=== PATIENT | male | born 1940 | race Caucasian/White ===

== ENCOUNTER 2022-04-17 09:25 | Inpatient (IN) | payer MEDICARE, BC, SELFPAY ==
[2022-04-17] VITALS (20 sets, daily range): BP systolic 100–129; BP diastolic 47–72; PULSE 80–110; RESP 13–24; TEMP 36.2–37.1; O2SAT 95–100; BMI 24.0
--- NOTE | ~2022-04-17 | US_ITS ---
EXAMINATION: US venous doppler [facility] DATE: 04/17/2022 16:52 INDICATION: Syncope, weakness and elevated d-dimer. TECHNIQUE: Grayscale ultrasound images without and with compression and Doppler ultrasound images of the bilateral lower extremity veins were obtained. COMPARISON: None. FINDINGS: The visualized portions of right common femoral vein, profunda (deep) femoral vein, femoral vein, pop liteal vein, posterior tibial veins, peroneal veins, gastrocnemius vein and greater saphenous vein ou tflow are patent. The visualized portions of left common femoral vein, profunda femoral vein, femoral vein, popliteal v ein, posterior tibial veins, peroneal veins, gastrocnemius vein and greater saphenous vein outflow ar e patent. IMPRESSION: 1. No deep venous thrombosis in either lower limb. Reviewed, dictated and finalized at location B.
--- NOTE | ~2022-04-17 | XR_ITS ---
EXAMINATION: XR chest 1V portable 04/17/2022 12:43 INDICATION: Weakness. Dyspnea. PROCEDURE: AP portable chest COMPARISON: No prior studies for comparison. FINDINGS: The lungs are clear. The cardiomediastinal silhouette is within normal limits. There are no pleural effusions. There is no pneumothorax suspected. IMPRESSION: 1: NO ACUTE CARDIOPULMONARY DISEASE. Reviewed, dictated and finalized at location A.
--- NOTE | ~2022-04-17 | CT_ITS ---
EXAMINATION: CTA chest PE protocol DATE: 04/17/2022 17:30 INDICATION: Elevated d-dimer. Syncope. Chills. TECHNIQUE: Computed tomography angiography (CTA) of the chest was performed with 100 mL Omnipaque-350 intravenous contrast timed to evaluate the pulmonary arteries. Coronal maximum intensity projection 3D-reconstructions were created by the technologist. Automated exposure control and iterative reconst ruction technique were employed. Exam dose: 367.01 mGy-cm total exam DLP. COMPARISON: 04/2022 portable AP chest FINDINGS: There is diagnostic contrast enhancement of the pulmonary arteries and no evidence of pulmo nary embolism. No thoracic aortic aneurysm or dissection. Normal heart size. No pericardial or pleural effusion. No enlarged hilar or mediastinal lymph nodes. There is minimal patchy groundglass infiltrate of the lingula and left lower lobe which may represent mild pneumonia. Very small sliding hiatal hernia. Normal morphology of the adrenal glands. Degenerative change at the acromioclavicular joints and osteoarthritic change at the glenohumeral john nts. 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 There is patchy sclerosis of T3 and T10 in particular, with patchy sclerotic areas elsewhere in the t horacic and lumbar spine and sternum, mixed lytic and sclerotic lesions of the left scapula, occasion al patchy sclerotic bilateral rib lesions, likely due to to extensive skeletal metastatic disease. Co nsider metastatic prostate cancer. IMPRESSION: Extensive skeletal metastatic disease, with osteoblastic predominance, raising suspicion of metastatic prostate cancer Minimal patchy groundglass infiltrates of the lingula and left lower lobe suggesting mild pneumonia No evidence of pulmonary embolism Reviewed, dictated and finalized at Location A. Reviewed, dictated and finalized at location A. IMPRESSION: Extensive skeletal metastatic disease, with osteoblastic predomina nce, raising suspicion of metastatic prostate cancer Minimal patchy groundglass infiltrates of the lingula and left lower lobe sugge sting mild pneumonia No evidence of pulmonary embolism
--- NOTE | 2022-04-17 09:40 | ECG_ITS ---
Measurements Intervals [place] Rate: 89 P: 52 OR: 186 QRS: 47 QRSD: 127 T: 43 QT: 360 QTc: 438 Interpretive Statements SINUS RHYTHM RIGHT BUNDLE BRANCH BLOCK ABNORMAL ECG NO PREVIOUS ECG AVAILABLE FOR COMPARISON Electronically Signed On 04-17-2022 10:18:42 CDT by Oliver Cantu D.O.
[2022-04-17 10:11] LABS: Glucose Point of Care 138 mg/dl (65-105)
--- NOTE | 2022-04-17 10:27 | ED.GENADULT ---
HPI - General Adult General Chief complaint: Weakness Stated complaint: Nosebleed, weak Time Seen by Provider: 04/17/22 09:32 History of Present Illness HPI narrative: this is an 81-year-old male presenting to ED with chief complaint of nose bleeding and weakness. Patient said that he had a oozing nose bleed throughout most of the day yesterday. It has now resolved. He also says he has been feeling weak. He said he got up in the middle the night he had cold sweats while going to the restroom. Then he said that he collapsed on his bed earlier this morning. He is denying fever, chest pain, dyspnea, shortness of breath. Review of Systems Review of Systems: CONSTITUTIONAL: Denies night sweats. EYES: No eye pain ENT: Denies rhinorrhea CARDIOVASCULAR: Denies palpitations RESPIRATORY: Denies hemoptysis GASTROINTESTINAL: Denies hematemesis GENITOURINARY: Denies hematuria. SKIN: Denies rash MUSCULOSKELETAL: Denies myalgia. NEUROLOGIC: Denies weakness. PSYCHIATRIC: Denies delusions PMFSH Social History Social History Social History: Patient denies use of alcohol, tobacco or drug use Exam Narrative: APPEARANCE: No apparent distress. Patient is pleasant polite during the interview Head atraumatic. EYES: PERRLA/EOMI, NOSE: Normal no drainage NECK: Supple, Trachea midline RESPIRATORY: CTAB, No increased work of breathing. CARDIOVASCULAR: S1S2 appreciated ABDOMINAL: Soft, nontender, nondistended, MUSCULOSKELETAl: No obvious deformities NEURO: Alert. Moving 4/4 extremities SKIN:: Warm, dry. Normal color PSYCHIATRIC: Normal affect rectal exam was positive for melena, Hemoccult-positive Course Vital Signs Vital signs: Vital Signs Temperature 98.3 F 04/17/22 09:29 Pulse Rate 101 H 04/17/22 09:29 Respiratory Rate 18 04/17/22 09:29 Blood Pressure 126/61 04/17/22 09:29 Pulse Oximetry 99 04/17/22 09:29 Oxygen Delivery Room Air 04/17/22 09:29 Temperature 98.3 F 04/17/22 09:29 Pulse Rate 84 04/17/22 11:31 Respiratory Rate 13 04/17/22 11:31 Blood Pressure 102/60 04/17/22 11:31 Pulse Oximetry 98 04/17/22 11:16 Oxygen Delivery Room Air 04/17/22 09:29 Medical Decision Making MDM Narrative Medical decision making narrative: this is an 81-year-old male presenting ED after a nose bleed and weakness. EKG interpretation: Rhythm [sinus], Rate 89, [place] -[normal], [place] -[normal], QRS RBBB, QTC [normal], T waves -[negative for concerning inversions], ST Segments - [Negative for concerning elevations] Final interpretations: [Normal Sinus Rhythm w/ RBBB] CBC was positive for a white blood cell count of 14, and hemoglobin of 8.1. We have no previous records of which compares hemoglobin 2. Platelet count Is 96. INR is 1.8. Patient not on anticoagulation. Patient's metabolic panel significant for hyponatremia and hypochloremia. He will be given a L of fluids. His BUN is elevated at 80 with a creatinine of 1.2. This is likely due to a GI bleed. Troponin was elevated 0.062. Aspirin will be held due to bleeding. urine urinalysis positive for over 75 RBCs per high-power field. At this point patient is bleeding from multiple locations. He has decreased platelets and is anemic. Will be admitted to the hospital for Heme-Onc evaluation. Vital Signs Vital Signs: Vital Signs Temperature 98.3 F 04/17/22 09:29 Pulse Rate 101 H 04/17/22 09:29 Respiratory Rate 18 04/17/22 09:29 Blood Pressure 126/61 04/17/22 09:29 Pulse Oximetry 99 04/17/22 09:29 Oxygen Delivery Room Air 04/17/22 09:29 Temperature 98.3 F 04/17/22 09:29 Pulse Rate 84 04/17/22 11:31 Respiratory Rate 13 04/17/22 11:31 Blood Pressure 102/60 04/17/22 11:31 Pulse Oximetry 98 04/17/22 11:16 Oxygen Delivery Room Air 04/17/22 09:29 Lab Data Result diagrams: 04/17/22 10:17 04/17/22 10:17
[2022-04-17 10:32] LABS: Basophils Percent Auto 0.2 % (0.2-1.2); Hematocrit 24.3 % (42.0-52.0); Hemoglobin 8.1 g/dL (14.0-18.0); Immature Granulocyte Absolute 0.25 K/mm3 (0.00-0.031); Immature Granulocyte Percent A 1.8 % (0-0.5); Lymphocytes Absolute Auto 0.83 K/mm3 (0.9-3.2); Lymphocytes Percent Auto 5.9 % (18.3-44.2); Mean Corpuscular HGB Conc 33.3 g/dl (32-36); Mean Corpuscular Hemoglobin 29.9 pg (26-34); Mean Corpuscular Volume 89.7 fl (80-100); Mean Platelet Volume 10.8 fl (7.4-10.4); Monocytes Absolute Auto 0.5 K/mm3 (0.1-0.6); Monocytes Percent Auto 3.3 % (2.6-8.5); Neutrophils Absolute Auto 12.5 K/mm3 (1.3-6.7); Neutrophils Percent Auto 88.8 % (45.5-73.1); Platelet Count Result 96 k/mm3 (150-375); Red Blood Count 2.71 M/mm3 (4.6-6.20); Red Cell Distribution Width 13.9 % (11.5-14.5); White Blood Count 14.1 K/mm3 (4.5-10.0)
[2022-04-17 10:40] LABS: INR 1.8; Prothrombin Time 20.3 Seconds (11.1-14.7)
[2022-04-17 10:47] LABS: Anion Gap 10 mmol/L (8-16); Blood Urea Nitrogen 79 mg/dL (9-20); Calcium 8.4 mg/dL (8.4-10.2); Carbon Dioxide 27 mmol/L (22-30); Chloride 95 mmol/L (98-107); Estimated CRCL calculation 47 ml/min; Estimated Glomerular Filt Rate 58; Glucose 138 mg/dL (65-110); Magnesium 2.1 mg/dL (1.6-2.3); Potassium 4.8 mmol/L (3.4-5.0); Sodium 132 mmol/L (137-145)
[2022-04-17 10:50] LABS: Influenza A QL RT-PCR Negative (Negative); Influenza B QL RT-PCR Negative (Negative); SARS-CoV-2 RNA PCR Negative
[2022-04-17 11:02] LABS: Troponin I 0.062 ng/mL (0.000-0.034)
[2022-04-17 11:18] LABS: Platelet Estimate Decreased (Adequate)
[2022-04-17 11:19] LABS: Acanthocytes 1+ (NORMAL); Burr Cells 1+ (NORMAL); Helmet Cells 1+ (NORMAL); Schistocytes 1+ (NORMAL)
[2022-04-17 11:35] LABS: Color Urine Red (Yellow)
[2022-04-17 11:38] LABS: Appearance Urine Cloudy (Clear); Mucus Urine Few /lpf; Protein Urine 3+ mg/dL (Negative)
[2022-04-17 11:39] LABS: Add Urine Microscopic? YES; Blood Urine 4+ (Negative); Glucose Urine UA Negative (Negative); Leukocyte Esterase Ur 2+ LEU/UL (Negative); Nitrate Urine Negative (Negative); Urobilinogen Urine 0.2 mg/dL (<2.0)
[2022-04-17 11:40] LABS: RBC Urine >75 /hpf (0-2); WBC Urine 16-20 /hpf (0-3)
--- NOTE | 2022-04-17 13:20 | PM.IMHP ---
H&P: HPI History of Present Illness Date/Time: 04/17/22 13:20 Chief Complaint: Nose bleed and we Narrative: This is a 81-year-old male patient who has no past medical history and does not take any medications. The patient was complaining of having a bleeding nose and weakness. Patient had a nose bleed all day yesterday. It is now resolved. Patient feels very weak. Patient stated that he got up in the middle of the night and noticed that he had dark stool. The patient has never had a colonoscopy or screen for colon cancer. The patient stated that he had hematuria any also had bright red blood coming from his rectum. He denied any fever chills or any shortness of breath. However he feels very dizzy when he walks and is very weak. The patient stated that he collapsed on his bed earlier this morning. His H&H initially was 8.1 and 24.3 and the repeat H&H was 7.7 and 23.3. Platelets are 96. Patient's D-dimer is greater than 20. Troponin 0.062 and 0.057. Ferritin is high at 786 TIBC is slightly low at 251. The patient had 4+ blood in his urine. The patient had been doing some work in his home and had a back pain this last week and was taking NSAIDs daily. The patient is being admitted to inpatient status on the date of service of 04/17/2022. Review of Systems Review of Systems: See HPI All systems reviewed & are unremarkable except as noted in HPI and below Constitutional: Constitutional: Reports as per HPI and Reports no additional constitutional complaints Eyes: Eyes: Reports as per HPI and Reports no additional eye complaints ENT: Reports system reviewed and no additional complaints, except as documented and Reports Normal hearing present Cardiovascular: Cardiovascular: Reports no additional cardiovascular complaints Respiratory: Respiratory: Reports no additional respiratory complaints and Reports no additional respiratory complaints Gastrointestinal: Gastrointestinal: Reports as per HPI and Reports no additional gastrointestinal complaints Musculoskeletal: Musculoskeletal: Reports no additional musculoskeletal complaints Integumentary/Breasts: Skin/Breast: Reports system reviewed and no additional complaints, except as docu and Reports as per HPI Neurologic: Reports system reviewed and no additional complaints, except as documented, Reports as per HPI and Reports Normal hearing present Psychiatric: Psychiatric: Reports no additional psychiatric complaints and Reports as per HPI Endocrine: Endocrine: Reports no additional endocrine complaints Hematologic/Lymphatic: Hematologic/Lymphatic: Reports no additional hematologic/lymphatic complaints Allergic/Immunologic: Allergic/Immunologic: Reports no additional allergic/immunologic complaints PMFSH Past Medical History Medical History (Updated 04/17/22 @ 16:09 by Marivel Minor NP) BPH (benign prostatic hyperplasia) Surgical History Surgical History (Updated 04/17/22 @ 13:24 by Marivel Minor NP) H/O hernia repair Family History Family History (Updated 04/17/22 @ 13:27 by Marivel Minor NP) Father Colon cancer Mother Bladder cancer Social History Social History (Updated 04/17/22 @ 15:59 by Marivel Minor NP) Social History: The patient lives with his and has 1 child. The is the durable power civil attorney for healthcare. Patient denies use of alcohol or drug use. 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 Code status full code Smoking status: Former smoker Tobacco type: cigarettes Has the Lack of Transportation Kept You From Medical Appointments or From Getting Medications?: No Within the Past 12 Months, Were You Worried Whether Your Food Would Run Out Before You Got Money to Buy More?: Never True What is Your Housing Situation Today?: I Have Housing Are You Worried That in the Next 2 Months, You May Not Have Your Own Housing to Live In?: No Do You Have Trouble Paying Your Heating Or Electricity Bill?: No Do
[2022-04-17 13:24] LABS: Immature Reticulocyte Fraction 27.4 % (3.0-15.9); Reticulocyte Hemoglobin Conten 32.9 pg (28.2-35.7); Reticulocyte Percent 2.64 % (0.7-4.3); Reticulocytes Absolute 0.07 B/L (32.2-175.7)
[2022-04-17 13:26] LABS: Iron 76 ug/dL (49-181)
[2022-04-17] MEDS: LACTATED RINGERS 1,000 ML 125 ML IV CONT (13:29)
[2022-04-17 13:34] LABS: Transferrin 176 mg/dL (206-381)
[2022-04-17 13:35] LABS: Percent Iron Saturation 30 % (20-50)
[2022-04-17 13:40] LABS: Magnesium 2.1 mg/dL (1.6-2.3)
[2022-04-17 13:44] LABS: Troponin I 0.057 ng/mL (0.000-0.034)
[2022-04-17 13:51] LABS: Hematocrit 23.3 % (42.0-52.0); Hemoglobin 7.7 g/dL (14.0-18.0)
[2022-04-17 14:12] LABS: Fibrinogen 81 mg/dl (215-510)
[2022-04-17 14:19] LABS: D Dimer > 20.00 ug/mL (<0.48)
--- NOTE | 2022-04-17 14:20 | ADMGEN ---
This patient, Dereck Blum, was admitted to IMU Room 206-01. Patient/family oriented to hospital policies and general routines including ID bracelet, bed and alarms, visiting hours, pain management, procedures, bathroom and other care routines, personal items, smoking policy, room service/diet, and visiting hours. Information on how to activate the Rapid Response Team has been discussed. Patient/Family are encouraged to report perceived risks to care and to ask questions if they do not understand what they are told or what they should do.
[2022-04-17 16:07] LABS: Lactate Dehydrogenase 1892 U/L (120-246)
[2022-04-17 20:53] LABS: Hematocrit 18.6 % (42.0-52.0); Hemoglobin 6.3 g/dL (14.0-18.0)
[2022-04-17] MEDS: SODIUM CHLORIDE 0.9% IV 250 ML 30 ML IV CONT (22:32)
[2022-04-17] MEDS: TUBING, BLOOD PLUM PUMP TUBING 2 EACH XX (22:33)
[2022-04-18] VITALS (22 sets, daily range): BP systolic 105–136; BP diastolic 46–68; PULSE 67–96; RESP 14–20; TEMP 36.1–37.3; O2SAT 95–100
[2022-04-18] MEDS: LACTATED RINGERS 1,000 ML 125 ML IV CONT (05:29)
[2022-04-18 06:52] LABS: Basophils Percent Auto 0.3 % (0.2-1.2); Eosinophils Absolute Auto 0.1 K/mm3 (0-0.3); Eosinophils Percent Auto 0.8 % (0-4.4); Hematocrit 23.3 % (42.0-52.0); Hemoglobin 7.8 g/dL (14.0-18.0); Immature Granulocyte Absolute 0.23 K/mm3 (0.00-0.031); Immature Granulocyte Percent A 1.7 % (0-0.5); Immature Platelet Fraction Pct 6.7 % (0.9-11.2); Lymphocytes Absolute Auto 1.28 K/mm3 (0.9-3.2); Lymphocytes Percent Auto 9.5 % (18.3-44.2); Mean Corpuscular HGB Conc 33.5 g/dl (32-36); Mean Corpuscular Hemoglobin 28.5 pg (26-34); Mean Platelet Volume 10.4 fl (7.4-10.4); Monocytes Absolute Auto 0.8 K/mm3 (0.1-0.6); Monocytes Percent Auto 5.7 % (2.6-8.5); Platelet Count Result 91 k/mm3 (150-375); Red Blood Count 2.74 M/mm3 (4.6-6.20); Red Cell Distribution Width 16.7 % (11.5-14.5); White Blood Count 13.4 K/mm3 (4.5-10.0)
[2022-04-18 07:06] LABS: Alanine Aminotransferase 14 U/L (6-50); Albumin Level 2.7 g/dL (3.5-5.1); Alkaline Phosphatase 120 U/L (38-126); Anion Gap 7 mmol/L (8-16); Aspartate Amino Transferase 63 U/L (17-59); Bilirubin,Total 0.8 mg/dL (0.2-1.3); Blood Urea Nitrogen 57 mg/dL (9-20); Calcium 7.4 mg/dL (8.4-10.2); Carbon Dioxide 25 mmol/L (22-30); Chloride 100 mmol/L (98-107); Estimated CRCL calculation 55 ml/min; Estimated Glomerular Filt Rate > 60; Glucose 89 mg/dL (65-110); Lactic Acid Reflex 0.7 mmol/L (0.7-2.0); Potassium 4.2 mmol/L (3.4-5.0); Sodium 132 mmol/L (137-145)
[2022-04-18 07:23] LABS: Helmet Cells 1+ (NORMAL); Ovalocytes 1+ (NORMAL); Platelet Estimate Decreased (Adequate); Poikilocytosis 1+ (NORMAL); Schistocytes 1+ (NORMAL)
[2022-04-18 07:24] LABS: Acanthocytes 1+ (NORMAL); Anisocytosis 1+ (NORMAL)
--- NOTE | 2022-04-18 11:18 | PM.IMPN ---
Progress Note: A&P Assessment and Plan (1) Anemia: Code(s): D64.9 - Anemia, unspecified Status: Acute Assessment and Plan: No prior level. Suspected GI bleed with melena Monitor H& H. Transfuse to keep hemoglobin more than 7 Add PPI b.i.d. History of recurrent GERD symptoms GI has been consulted Likely would benefit from EGD colonoscopy (2) BPH (benign prostatic hyperplasia): Code(s): N40.0 - Benign prostatic hyperplasia without lower urinary tract symptoms Status: Acute Assessment and Plan: -the patient take something [id number] that has Alice palmetto in it. It sounds like he has been on this for while and I would not suspect this would be causing his bleeding. However the only thing that was different is that he was taking NSAIDs last week. Metastatic osteoblastic lesions in on CTA Suspected for metastatic prostate cancer Check PSA Oncology has been consulted (3) Acute GI bleeding: Code(s): K92.2 - Gastrointestinal hemorrhage, unspecified Status: Acute Assessment and Plan: Check H&H every 6 hours. Melanomatous stool in the ER Protonix IV GI has been consulted. Will need EGD colonoscopy (4) Hematuria: Code(s): R31.9 - Hematuria, unspecified Status: Acute Assessment and Plan: Possible UTI/related now clearing up on his own Will start ceftriaxone Urine culture to be sent (5) Elevated d-dimer: Code(s): R79.89 - Other specified abnormal findings of blood chemistry Status: Acute Assessment and Plan: CT a pulmonary and venous Dopplers CTA is negative for PE however shows mild pneumonia and left lower lobe Venous duplex is negative for DVT Plan Intermittent SVT: continue to monitor Generalized weakness Collapse Melena Pneumonia left lower lobe Possible UTI Acute blood loss anemia Thrombocytopenia continue to monitor DVT prophylaxis SCDs Mild hyponatremia Elevated troponin mild with flat trajectory Elevated LDH Subjective Date/time seen: 04/18/22 11:18 Interval history: HPI:This is a 81-year-old male patient who has no past medical history and does not take any medications.? The patient was complaining of having a bleeding nose and weakness.? Patient had a nose bleed all day yesterday.? It is now resolved.? Patient feels very weak.? Patient stated that he got up in the middle of the night and noticed that he had dark stool.? The patient has never had a colonoscopy or screen for colon cancer.? The patient stated that he had hematuria any also had bright red blood coming from his rectum.? He denied any fever chills or any shortness of breath.? However he feels very dizzy when he walks and is very weak.? The patient stated that he collapsed on his bed earlier this morning.? His H&H initially was 8.1 and 24.3 and the repeat H&H was 7.7 and 23.3.? Platelets are 96.? Patient's D-dimer is greater than 20.? Troponin 0.062 and 0.057.? Ferritin is high at 786 TIBC is slightly low at 251.? The patient had 4+ blood in his urine.? The patient had been doing some work in his home and had a back pain this last week and was taking NSAIDs daily.? The patient is being admitted to inpatient status on the date of service of 04/17/2022. 04/18/2022 feels well no new complaints denies any abdominal pain nausea vomiting. He reports recurrent GERD symptoms and takes rolaid regularly. Does have prostatic symptoms with frequency of urination and nocturia. Also noted to have hematuria. Had collapsed on his bed earlier yesterday. Also has some nose bleeds and generalized weakness Review of Systems Review of Systems: All systems reviewed & are unremarkable except as noted in HPI and below Exam Narrative: General APPEARANCE: No apparent distress.? Alert and oriented x3 Head atraumatic. Normocephalic EYES:? PERRLA/EOMI, NOSE: Normal no drainage NECK: Supple, Trachea midline RESPIRATORY: CTAB, No increased work of breath
[2022-04-18 12:44] LABS: Carcinoembryonic Antigen 1.9 ng/mL (0.0-3.0)
[2022-04-18] MEDS: LACTATED RINGERS 1,000 ML 75 ML IV CONT (12:45)
[2022-04-18] MEDS: PANTOPRAZOLE SODIUM IV 40 MG VIAL IV PUSH (21:01)
[2022-04-18] MEDS: BENZOCAINE/MENTHOL (*BKC) 18 EA LOZENGE 1 LOZENGE PO (22:05)
[2022-04-19] VITALS (17 sets, daily range): BP systolic 104–155; BP diastolic 52–76; PULSE 67–93; RESP 16–20; TEMP 35.9–36.8; O2SAT 97–100
[2022-04-19 00:37] LABS: Hematocrit 22.4 % (42.0-52.0); Hemoglobin 7.5 g/dL (14.0-18.0)
--- NOTE | 2022-04-19 01:03 | PC.NURSE ---
Daylight Savings Time For Daylight Savings Time Ending in the Fall - Clocks are moved back. For Daylight Savings Time Beginning in the Spring - Clocks are moved ahead. For [facility], the time of change occurs at 0200 hrs. Time is taken from the dietary server. This entry on the patient's chart recognizes the change in time reflected during documentation. Example: 2 entries for vital signs may be charted for 0200 hrs.
[2022-04-19] MEDS: LACTATED RINGERS 1,000 ML 75 ML IV CONT (01:20)
[2022-04-19 05:40] LABS: Basophils Percent Auto 0.3 % (0.2-1.2); Eosinophils Absolute Auto 0.2 K/mm3 (0-0.3); Eosinophils Percent Auto 1.4 % (0-4.4); Hematocrit 22.2 % (42.0-52.0); Hemoglobin 7.2 g/dL (14.0-18.0); Immature Granulocyte Absolute 0.19 K/mm3 (0.00-0.031); Immature Granulocyte Percent A 1.3 % (0-0.5); Immature Platelet Fraction Pct 6.4 % (0.9-11.2); Lymphocytes Absolute Auto 1.48 K/mm3 (0.9-3.2); Lymphocytes Percent Auto 9.8 % (18.3-44.2); Mean Corpuscular HGB Conc 32.4 g/dl (32-36); Mean Corpuscular Hemoglobin 28.3 pg (26-34); Mean Corpuscular Volume 87.4 fl (80-100); Mean Platelet Volume 10.6 fl (7.4-10.4); Monocytes Absolute Auto 0.9 K/mm3 (0.1-0.6); Monocytes Percent Auto 5.6 % (2.6-8.5); Neutrophils Absolute Auto 12.3 K/mm3 (1.3-6.7); Neutrophils Percent Auto 81.6 % (45.5-73.1); Platelet Count Result 111 k/mm3 (150-375); Red Blood Count 2.54 M/mm3 (4.6-6.20); Red Cell Distribution Width 17.1 % (11.5-14.5); White Blood Count 15.1 K/mm3 (4.5-10.0)
[2022-04-19 05:58] LABS: Alanine Aminotransferase 25 U/L (6-50); Albumin Level 2.7 g/dL (3.5-5.1); Alkaline Phosphatase 114 U/L (38-126); Anion Gap 7 mmol/L (8-16); Aspartate Amino Transferase 55 U/L (17-59); Bilirubin,Total 0.5 mg/dL (0.2-1.3); Blood Urea Nitrogen 25 mg/dL (9-20); Calcium 7.4 mg/dL (8.4-10.2); Carbon Dioxide 26 mmol/L (22-30); Chloride 98 mmol/L (98-107); Estimated CRCL calculation 61 ml/min; Estimated Glomerular Filt Rate > 60; Glucose 90 mg/dL (65-110); Magnesium 1.9 mg/dL (1.6-2.3); Potassium 3.9 mmol/L (3.4-5.0); Sodium 131 mmol/L (137-145)
[2022-04-19] MEDS: PANTOPRAZOLE SODIUM IV 40 MG VIAL IV PUSH ×2 (08:21→20:56)
--- NOTE | 2022-04-19 11:30 | WPDGICN ---
Assessment and Plan Assessment and plan (1) Epistaxis: Code(s): R04.0 - Epistaxis Status: Acute Assessment and Plan: Nose bleed described as rather significant ongoing for a day and a half has now stopped. Should it recur ENT evaluation may be necessary. Likely source of anemia (2) Occult blood in stools: Code(s): R19.5 - Other fecal abnormalities Status: Acute Assessment and Plan: Stool Hemoccult found to be positive in the ER. Will repeat stool Hemoccult today. (3) Anemia: Code(s): D64.9 - Anemia, unspecified Status: Acute Assessment and Plan: Anemia likely secondary to nose bleed. Patient does have heartburn and has never had a screening colonoscopy. Given the concern over additional sources of anemia colonoscopy and EGD will be performed tomorrow after preparation today. (4) Abnormal computed tomography angiography (CTA): Code(s): R93.89 - Abnormal findings on diagnostic imaging of other specified body structures Status: Acute Assessment and Plan: CT a scan done in the emergency room reveals multiple osteoblastic bone lesions suspicious for metastatic cancer. Possible metastatic prostate cancer as described. Would recommend oncology consult possible Urology consult. PSA will be ordered. (5) Heartburn: Code(s): R12 - Heartburn Status: Acute Assessment and Plan: patient has had chronic heartburn for which he carries Rolaids with him in takes these frequently. Potentially this could indicate an upper GI source of lesions that could contribute blood loss. An EGD will be performed tomorrow as well as colonoscopy, for screening purposes, as well as to assess possible GI source of blood loss. GI Consult Note Consult date/time: 04/19/22 11:30 Reason for consult: Anemia HPI: Dereck Blum is a 81 year old male I am asked to see because of anemia and Hemoccult dark stools. Patient reports in generally has been healthy. He states last week on Wednesday he developed a nose bleed that he states was rather heavy and persisted all day long . He reports on Wednesday he presented to the emergency room because he collapsed at home. In the ER patient was noted to have a decline in his hemoglobin. He was noted to have dark stools that were Hemoccult positive. Patient states that in the past he has had occasional heartburn his whole life. He occasionally will take a Rolaids for relief on rather frequent basis. Patient denies any weight loss. No family history of colon or rectal disease. Patient has never had previous endoscopic evaluation. Review of Systems Review of Systems: Review of systems noncontributory. [facility] Past Medical History Medical History (Updated 04/19/22 @ 11:36 by Levon Laws MD) BPH (benign prostatic hyperplasia) Surgical History Surgical History (Updated 04/17/22 @ 13:24 by Marivel Minor NP) H/O hernia repair Family History Family History (Updated 04/17/22 @ 13:27 by Marivel Minor NP) Father Colon cancer Mother Bladder cancer Social History Social History (Updated 04/17/22 @ 15:59 by Marivel Minor NP) Social History: The patient lives with his and has 1 child. The is the durable power managing attorney for healthcare. Patient denies use of alcohol or drug use. 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 Code status full code Smoking status: Former smoker Tobacco type: cigarettes Has the Lack of Transportation Kept You From Medical Appointments or From Getting Medications?: No Within the Past 12 Months, Were You Worried Whether Your Food Would Run Out Before You Got Money to Buy More?: Never True What is Your Housing Situation Today?: I Have Housing Are You Worried That in the Next 2 Months, You May Not Have Your Own Housing to Live In?: No Do You Have Trouble Paying Your Heating Or Electricity Bill?: No Do You Have Trouble Paying
--- NOTE | 2022-04-19 11:37 | PM.IMPN ---
Progress Note: A&P Assessment and Plan (1) Anemia: Code(s): D64.9 - Anemia, unspecified Status: Acute Assessment and Plan: No prior level. Suspected GI bleed with melena Monitor H& H. Transfuse to keep hemoglobin more than 7 Add PPI b.i.d. History of recurrent GERD symptoms GI has been consulted Likely would benefit from EGD colonoscopy Discussed with GI 04/19/2022 (2) BPH (benign prostatic hyperplasia): Code(s): N40.0 - Benign prostatic hyperplasia without lower urinary tract symptoms Status: Acute Assessment and Plan: -the patient take something [id number] that has Alice palmetto in it. It sounds like he has been on this for while and I would not suspect this would be causing his bleeding. However the only thing that was different is that he was taking NSAIDs last week. Metastatic osteoblastic lesions in on CTA Suspected for metastatic prostate cancer Check PSA which is pending Oncology has been consulted (3) Acute GI bleeding: Code(s): K92.2 - Gastrointestinal hemorrhage, unspecified Status: Acute Assessment and Plan: Check H&H every 6 hours. Melanomatous stool in the ER Protonix IV GI has been consulted. Will need EGD colonoscopy (4) Hematuria: Code(s): R31.9 - Hematuria, unspecified Status: Acute Assessment and Plan: Possible UTI/related now clearing up on his own started on ceftriaxone Urine culture no growth (5) Elevated d-dimer: Code(s): R79.89 - Other specified abnormal findings of blood chemistry Status: Acute Assessment and Plan: CT a pulmonary and venous Dopplers CTA is negative for PE however shows mild pneumonia and left lower lobe Venous duplex is negative for DVT Plan Intermittent SVT: continue to monitor no further recurrence noted 04/19/2022 Generalized weakness Collapse Melena Pneumonia left lower lobe Possible UTI Acute blood loss anemia Thrombocytopenia continue to monitor DVT prophylaxis SCDs Mild hyponatremia Elevated troponin mild with flat trajectory Elevated LDH Subjective Date/time seen: 04/19/22 11:37 Interval history: HPI:This is a 81-year-old male patient who has no past medical history and does not take any medications.? The patient was complaining of having a bleeding nose and weakness.? Patient had a nose bleed all day yesterday.? It is now resolved.? Patient feels very weak.? Patient stated that he got up in the middle of the night and noticed that he had dark stool.? The patient has never had a colonoscopy or screen for colon cancer.? The patient stated that he had hematuria any also had bright red blood coming from his rectum.? He denied any fever chills or any shortness of breath.? However he feels very dizzy when he walks and is very weak.? The patient stated that he collapsed on his bed earlier this morning.? His H&H initially was 8.1 and 24.3 and the repeat H&H was 7.7 and 23.3.? Platelets are 96.? Patient's D-dimer is greater than 20.? Troponin 0.062 and 0.057.? Ferritin is high at 786 TIBC is slightly low at 251.? The patient had 4+ blood in his urine.? The patient had been doing some work in his home and had a back pain this last week and was taking NSAIDs daily.? The patient is being admitted to inpatient status on the date of service of 04/17/2022. 04/18/2022 feels well no new complaints denies any abdominal pain nausea vomiting. He reports recurrent GERD symptoms and takes rolaid regularly. Does have prostatic symptoms with frequency of urination and nocturia. Also noted to have hematuria. Had collapsed on his bed earlier yesterday. Also has some nose bleeds and generalized weakness 04/19/2022 no overnight events. Feeling well. No shortness of breath or chest pain. No cough. Had a bowel movement yesterday which was melanomatous Review of Systems Review of Systems: All systems reviewed & are unremarkable except as noted in HPI and below
--- NOTE | 2022-04-19 14:22 | PCPTNOTE ---
Pt declined physical therapy evaluation. States he feels he would be able to walk and do all his activities immediately if he wasn't hooked up to to his IV. Attempted to educate pt on necessity of evaluation secondary to hospitalization vs prior level of function. also present and both declined therapy evaluation. Educated if MD requires therapy to sign off on mobility, will return in the next few days
[2022-04-19] MEDS: PEG (High)/E-LYTE SOLN 4,000 ML BTL 4000 ML PO (14:24)
[2022-04-20] VITALS (10 sets, daily range): BP systolic 85–146; BP diastolic 43–83; PULSE 66–83; RESP 17–22; TEMP 36.4–36.8; O2SAT 83–100
[2022-04-20 04:58] LABS: Basophils Percent Auto 0.3 % (0.2-1.2); Eosinophils Absolute Auto 0.3 K/mm3 (0-0.3); Eosinophils Percent Auto 2.9 % (0-4.4); Hemoglobin 7.2 g/dL (14.0-18.0); Immature Granulocyte Absolute 0.13 K/mm3 (0.00-0.031); Immature Granulocyte Percent A 1.3 % (0-0.5); Immature Platelet Fraction Pct 6.9 % (0.9-11.2); Lymphocytes Absolute Auto 1.61 K/mm3 (0.9-3.2); Lymphocytes Percent Auto 15.9 % (18.3-44.2); Mean Corpuscular HGB Conc 32.7 g/dl (32-36); Mean Corpuscular Hemoglobin 28.7 pg (26-34); Mean Corpuscular Volume 87.6 fl (80-100); Monocytes Absolute Auto 0.8 K/mm3 (0.1-0.6); Monocytes Percent Auto 7.5 % (2.6-8.5); Neutrophils Absolute Auto 7.3 K/mm3 (1.3-6.7); Neutrophils Percent Auto 72.1 % (45.5-73.1); Platelet Count Result 145 k/mm3 (150-375); Red Blood Count 2.51 M/mm3 (4.6-6.20); Red Cell Distribution Width 16.4 % (11.5-14.5); White Blood Count 10.2 K/mm3 (4.5-10.0)
[2022-04-20 05:06] LABS: Alanine Aminotransferase 32 U/L (6-50); Albumin Level 2.8 g/dL (3.5-5.1); Alkaline Phosphatase 139 U/L (38-126); Anion Gap 7 mmol/L (8-16); Aspartate Amino Transferase 53 U/L (17-59); Bilirubin,Total 0.5 mg/dL (0.2-1.3); Blood Urea Nitrogen 14 mg/dL (9-20); Calcium 7.5 mg/dL (8.4-10.2); Carbon Dioxide 26 mmol/L (22-30); Chloride 95 mmol/L (98-107); Estimated CRCL calculation 61 ml/min; Estimated Glomerular Filt Rate > 60; Glucose 90 mg/dL (65-110); Magnesium 1.9 mg/dL (1.6-2.3); Potassium 3.9 mmol/L (3.4-5.0); Sodium 128 mmol/L (137-145)
[2022-04-20] MEDS: LACTATED RINGERS 1,000 ML 150 ML IV CONT (08:46)
--- NOTE | 2022-04-20 09:30 | WPDANESEPPF ---
Anes - Initial Pre Proc Eval Procedure: Operation Date: 04/20/22 15:00 Proposed Procedures p Esophagogastroduodenoscopy & Colonoscopy - Reid Garzon MD Date/Time: 04/20/22 09:30 Surgeon: Billy Vazquez MD Pre Op Diagnosis: Anemia Patient Data Age: 81 Gender: M Height: 1.8 m Weight: 83.7 kg Last Vital Signs Temp 97.7 F 04/20/22 08:43 Pulse 83 04/20/22 08:43 Resp 20 04/20/22 08:43 BP 146/83 H 04/20/22 08:43 Pulse Ox 83 L 04/20/22 08:43 O2 Del Method Room Air 04/20/22 08:43 Allergies Allergy/AdvReac Type Severity Reaction Status Date / Time No Known Allergies Allergy Verified 04/20/22 08:40 Home Medications Medication Instructions Recorded Confirmed Type No Home Medications 04/17/22 04/17/22 History Laboratory Tests 04/20/22 04/20/22 04:26 04:26 WBC 10.2 K/mm3 H K/mm3 (4.5-10.0) RBC 2.51 M/mm3 L M/mm3 (4.6-6.20) Hgb 7.2 g/dL L g/dL (14.0-18.0) Hct 22.0 % L % (42.0-52.0) MCV 87.6 fl fl (80-100) MCH 28.7 pg pg (26-34) MCHC 32.7 g/dl g/dl (32-36) RDW 16.4 % H % (11.5-14.5) Plt Count 145 k/mm3 L k/mm3 (150-375) MPV 11.0 fl H fl (7.4-10.4) Immature Gran % (Auto) 1.3 % H % (0-0.5) Neut % (Auto) 72.1 % % (45.5-73.1) Lymph % (Auto) 15.9 % L % (18.3-44.2) [place] % (Auto) 7.5 % % (2.6-8.5) Eos % (Auto) 2.9 % % (0-4.4) Baso % (Auto) 0.3 % % (0.2-1.2) Lymph # (Auto) 1.61 K/mm3 K/mm3 (0.9-3.2) [place] # (Auto) 0.8 K/mm3 H K/mm3 (0.1-0.6) Eos # (Auto) 0.3 K/mm3 K/mm3 (0-0.3) Baso # (Auto) 0.0 K/mm3 K/mm3 (0.0-0.1) Abs Immat Gran (auto) 0.13 K/mm3 H K/mm3 (0.00-0.031) Absolute Neuts (auto) 7.3 K/mm3 H K/mm3 (1.3-6.7) Absolute Nucleated RBC 0.0 K/mm3 K/mm3 (0.0-0.012) Nucleated RBC % 0.0 % % (0.0-0.2) % Immature Plt Fraction 6.9 % % (0.9-11.2) Sodium 128 mmol/L L mmol/L (137-145) Potassium 3.9 mmol/L mmol/L (3.4-5.0) Chloride 95 mmol/L L mmol/L (98-107) Carbon Dioxide 26 mmol/L mmol/L (22-30) Anion Gap 7 mmol/L L mmol/L (8-16) BUN 14 mg/dL D mg/dL (9-20) Creatinine 0.90 mg/dL mg/dL (0.7-1.3) Estim Creat Clear Calc 61 ml/min ml/min Estimated GFR > 60 (59 - ) Glucose 90 mg/dL mg/dL (65-110) Calcium 7.5 mg/dL L mg/dL (8.4-10.2) Magnesium 1.9 mg/dL mg/dL (1.6-2.3) Total Bilirubin 0.5 mg/dL mg/dL (0.2-1.3) AST 53 U/L U/L (17-59) ALT 32 U/L U/L (6-50) Alkaline Phosphatase 139 U/L H U/L (38-126) Total Protein 5.0 g/dL L g/dL (6.3-8.2) Albumin 2.8 g/dL L g/dL (3.5-5.1) Patient hx anesthesia problems: none Family hx anesthesia problems: none Results Review: All pre-operative results and documents have been reviewed as part of the pre-operative evaluation. [facility] Past Medical History Medical History (Updated 04/19/22 @ 11:36 by Levon Laws MD) BPH (benign prostatic hyperplasia) Surgical History Surgical History (Updated 04/17/22 @ 13:24 by Marivel Minor NP) H/O hernia repair Family History Family History (Updated 04/17/22 @ 13:27 by Marivel Minor NP) Father Colon cancer Mother Bladder cancer Social History Social History (Updated 04/17/22 @ 15:59 by Marivel Minor NP) Social History: The patient lives with his and has 1 child. 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 Patient denies use of alcohol or drug use. 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 Code status full code Smoking status: Former smoker Tobacco type: cigarettes Has the Lack of Transportation Kept You From Medical Appointments or From Getting Medications?: No Within the Past 12 Months, Were You Worried Whether Your Food Would Run Out Before You Got Money to Buy More
--- NOTE | 2022-04-20 10:02 | SUR.OPER ---
egd ended at 955, colonoscopy started at 1003
[2022-04-20] MEDS: PANTOPRAZOLE SODIUM IV 40 MG VIAL IV PUSH (11:25)
--- NOTE | 2022-04-20 15:26 | PM.DS ---
DS: Admitting Diagnosis Discharge Date 04/20/2022 Admitting Diagnosis generalized weakness DS: Discharge Diagnosis Discharge Diagnosis (1) Anemia: Code(s): D64.9 - Anemia, unspecified Status: Acute (2) BPH (benign prostatic hyperplasia): Code(s): N40.0 - Benign prostatic hyperplasia without lower urinary tract symptoms Status: Acute (3) Acute GI bleeding: Code(s): K92.2 - Gastrointestinal hemorrhage, unspecified Status: Acute (4) Hematuria: Code(s): R31.9 - Hematuria, unspecified Status: Acute (5) Elevated d-dimer: Code(s): R79.89 - Other specified abnormal findings of blood chemistry Status: Acute DS: Summary Hospital Course Reason for hospitalization: HPI:This is a 81-year-old male patient who has no past medical history and does not take any medications.? The patient was complaining of having a bleeding nose and weakness.? Patient had a nose bleed all day yesterday.? It is now resolved.? Patient feels very weak.? Patient stated that he got up in the middle of the night and noticed that he had dark stool.? The patient has never had a colonoscopy or screen for colon cancer.? The patient stated that he had hematuria any also had bright red blood coming from his rectum.? He denied any fever chills or any shortness of breath.? However he feels very dizzy when he walks and is very weak.? The patient stated that he collapsed on his bed earlier this morning.? His H&H initially was 8.1 and 24.3 and the repeat H&H was 7.7 and 23.3.? Platelets are 96.? Patient's D-dimer is greater than 20.? Troponin 0.062 and 0.057.? Ferritin is high at 786 TIBC is slightly low at 251.? The patient had 4+ blood in his urine.? The patient had been doing some work in his home and had a back pain this last week and was taking NSAIDs daily.? The patient is being admitted to inpatient status on the date of service of 04/17/2022. Hospital Course: # generalized weakness # Anemia: No prior level. Suspected GI bleed with melena Monitor H& H.? Transfuse to keep hemoglobin more than 7 Add PPI b.i.d. History of recurrent GERD symptoms GI has been consulted Status post EGD and colonoscopy on 04/20/2022 EGD: Velasco's esophagus without dysplasia duodenitis and hiatal hernia. Colonoscopy: Internal hemorrhoids. Diverticulosis without perforation or abscess without bleeding. Place on PPI Anemia stable without no further drop. Recheck labs in 1 week needs to establish with PCP # BPH: -the patient take something [id number] that has Alice palmetto in it.? It sounds like he has been on this for while and I would not suspect this would be causing his bleeding.? However the only thing that was different is that he was taking NSAIDs last week. 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 which is pending Oncology has been consultedBut has not seen him yet. Patient wanting to go home and hence will having follow-up with Oncology as outpatient basis. His PSA is pending and will also need follow-up with urology for likely biopsy once PSA is back. Further workup for these osteoblastic spine lesions as an outpatient basis # acute GI bleed: Check H&H every 6 hours.? Melanomatous stool in the ER Protonix IV GI has been consulted. EGD and colonoscopy as noted above # hematuria: Possible UTI/related now clearing up on his own ?started on ceftriaxone Urine culture? no growth # elevated D-dimer: CT a pulmonary and venous Dopplers CTA is negative for PE however shows mild pneumonia and left lower lobe Venous duplex is negative for DVT # Intermittent SVT: continue to monitor no further recurrence noted 04/19/2022 # Collapse #Pneumonia left lower lobe treated with azithromycin and ceftriaxone. Will switch to Omnicef at discharge # Possible UTI # urine culture no growth # Thrombocytopenia continue to monitor mild and improving # DVT prophylaxi
[2022-04-21 19:37] LABS: Haptoglobin 19 mg/dL (43-212)
[2022-04-21 20:41] LABS: PSA, Free 7.04 ng/mL; PSA, Total 53.5 ng/mL (<=4.0)
== END 2022-04-20 16:00 | disposition home or self-care (01) | DRG 377 ==
LOC: ANHED 12:37 → ANHIMU 13:46
PROVIDERS: Internal Medicine Gastroenterology; Nurse Practitioner; Admitting Provider Internal Medicine; Emergency Provider Emergency Medicine; Visit Provider Internal Medicine
PROC: 0DJ08ZZ Inspection of Upper Intestinal Tract, Via Natural or Artificial Opening Endoscopic (ICD-10-PCS; CPT 43235; principal; 2022-04-20 15:00)
DX: K92.1 Melena (principal); J18.9 Pneumonia, unspecified organism; E87.1 Hypo-osmolality and hyponatremia; I47.1 Supraventricular tachycardia; N39.0 Urinary tract infection, site not specified; D64.9 Anemia, unspecified; K22.70 Barrett's esophagus without dysplasia; K44.9 Diaphragmatic hernia without obstruction or gangrene; K29.80 Duodenitis without bleeding; K64.8 Other hemorrhoids; K57.30 Diverticulosis of large intestine without perforation or abscess without bleeding; K21.9 Gastro-esophageal reflux disease without esophagitis; R04.0 Epistaxis; N40.0 Benign prostatic hyperplasia without lower urinary tract symptoms; R31.9 Hematuria, unspecified; R79.89 Other specified abnormal findings of blood chemistry; E78.5 Hyperlipidemia, unspecified; R77.8 Other specified abnormalities of plasma proteins; R55 Syncope and collapse; R53.1 Weakness; D69.6 Thrombocytopenia, unspecified; Z20.822 Contact with and (suspected) exposure to COVID-19; Z28.21 Immunization not carried out because of patient refusal; Z87.891 Personal history of nicotine dependence
CPT/HCPCS: 36415; 36430; 71045; 71275; 80048; 80053; 81001; 82378; 82607; 82728; 82746; 82948; 83010; 83540; 83550; 83605; 83615; 83735; 84153; 84154; 84443; 84466; 84484; 85014; 85018; 85025; 85046; 85055; 85380; 85384; 85610; 85730; 86850; 86880; 86900; 86901; 86923; 87081; 87086; 87502; 88305; 88342; 93005; 93970; 97165; 99285; A9270; C9113; J0456; J0696; J2370; J2704; J7050; J7120; P9016; Q9967; U0003; U0005

== ENCOUNTER 2022-04-23 09:58 | Emergency (ER) | payer MEDICARE, BC, SELFPAY ==
[2022-04-23 10:31] VITALS: BP 158/81; PULSE 82; RESP 18; TEMP 38; O2SAT 99
[2022-04-23 10:49] VITALS: O2SAT 97
[2022-04-23 10:57] LABS: Hematocrit 24.8 % (42.0-52.0); Hemoglobin 8.2 g/dL (14.0-18.0); Mean Corpuscular HGB Conc 33.1 g/dl (32-36); Mean Corpuscular Hemoglobin 28.2 pg (26-34); Mean Corpuscular Volume 85.2 fl (80-100); Mean Platelet Volume 9.8 fl (7.4-10.4); Platelet Count Result 326 k/mm3 (150-375); Red Blood Count 2.91 M/mm3 (4.6-6.20); Red Cell Distribution Width 15.8 % (11.5-14.5)
[2022-04-23 11:00] VITALS: O2SAT 97
[2022-04-23 11:06] LABS: INR 1.2; Partial Thromboplastin Time 29.3 SECONDS (22.3-36.8); Prothrombin Time 14.7 Seconds (11.1-14.7)
--- NOTE | 2022-04-23 11:10 | ED.GIBLEED ---
HPI - GI Bleed General Chief complaint: GI Bleed Stated complaint: weakness, anemia, blood in stool Time Seen by Provider: 04/23/22 11:08 Source: patient Mode of arrival: ambulatory Limitations: no limitations History of Present Illness HPI Narrative: 81 years old white female came to the emergency room because of feeling weak all over mainly lower extremities and have shot of black parts of the stool, 1 bowel movement a day since he had colonoscopy 1 week ago. Patient is concerned about the possibility of GI bleed. Colonoscopy 5 ago showed no abnormalities. Patient is not on blood thinners. CTA pulmonary on April 17 showed extensive skeletal metastatic disease with osteoblastic predominance, raising suspicious for metastatic prostatic cancer. Related Data Allergies Allergy/AdvReac Type Severity Reaction Status Date / Time No Known Allergies Allergy Verified 04/23/22 10:53 Review of Systems Review of Systems: All systems reviewed & are unremarkable except as noted in HPI and below PMFSH Past Medical History Medical History BPH (benign prostatic hyperplasia) Surgical History Surgical History H/O hernia repair Family History Family History Father Colon cancer Mother Bladder cancer Social History Social History Social History: The patient lives with his and has 1 child. The is the durable power document review attorney for healthcare. Patient denies use of alcohol or drug use. 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 Code status full code Smoking status: Former smoker Tobacco type: cigarettes Lack of Transportation: No Lack of Food: Never True Current Housing: I Have Housing Concerned About Future Housing: No Difficulty Paying Gas/Electric Bills: No Difficulty Paying for Meds: No Currently Unemployed: No Education: High School Diploma/GED Difficulty w/ Childcare or Family Care: No Spiritual care concerns: No Exam Narrative: General appearance: Well-developed, well-nourished Skin: Normal color Head: Normocephalic, nontraumatic Eyes: Clear conjunctiva ENT: Oropharynx normal, ears normal, nose normal Neck: Supple, nontender Chest and respiratory: Airway patent, no respiratory distress, no accessory muscle use Heart: Regular rate/rhythm Abdomen: Soft, nontender, no organomegaly, quiet bowel sounds Vascular: Normal peripheral pulses, normal capillary refill. Musculoskeletal: Normal range of motion, nontender back Neurologic: Alert and oriented ?3, [employer] is normal as tested, no gross motor deficit , Brown stool, guaiac negative Course Course Emergency Course: Work-up today showed that the patient had anemia, CTA pulmonary showed metastatic bone lesions high likely secondary to prostatic cancer. Patient needs to be evaluated by a urologist for biopsy and confirming the diagnosis. Patient scheduled to follow-up with Dr. No after getting urology evaluation. Patient report inability to get hold of Dr. Ruby, nobody answered the phone and he would like to get another urologist Vital Signs Vital signs: Vital Signs Temperature 38.0 C H 04/23/22 10:31 Pulse Rate 82 04/23/22 10:31 Respiratory Rate 18 04/23/22 10:31 Blood Pressure 158/81 H 04/23/22 10:31 Pulse Oximetry 99 04/23/22 10:31 Temperature 38.0 C H 04/23/22 10:31 Pulse Rate 82 04/23/22 10:31 Respiratory Rate 18 04/23/22 10:31 Blood Pressure 158/81 H 04/23/22 10:31 Pulse Oximetry 99 04/23/22 10:31
[2022-04-23 11:19] LABS: Band Neutrophils Percent 4 % (0-6); Eosinophils Absolute Manual 0.11 K/mm3 (0.02-0.5); Eosinophils Percent Manual 1 % (0-4); Lymphocytes Absolute Manual 1.65 K/mm3 (1.1-4.5); Metamyelocytes Percent 4 %; Monocytes Absolute Manual 0.22 K/mm3 (0.1-0.90); Monocytes Percent Manual 2 % (3-9); Myelocytes Percent 2 %; Neutrophils Absolute Manual 8.36 K/mm3 (1.3-6.7); Neutrophils Percent Manual 72 % (46-73); Total Cells Counted 100
[2022-04-23 11:20] LABS: Anisocytosis 1+ (NORMAL); Schistocytes 1+ (NORMAL)
[2022-04-23 11:21] LABS: Ovalocytes 1+ (NORMAL)
[2022-04-23 11:23] LABS: Alanine Aminotransferase 21 U/L (6-50); Albumin Level 3.4 g/dL (3.5-5.1); Alkaline Phosphatase 156 U/L (38-126); Anion Gap 8 mmol/L (8-16); Aspartate Amino Transferase 37 U/L (17-59); Bilirubin,Total 0.5 mg/dL (0.2-1.3); Blood Urea Nitrogen 14 mg/dL (9-20); Carbon Dioxide 24 mmol/L (22-30); Chloride 95 mmol/L (98-107); Estimated CRCL calculation 55 ml/min; Estimated Glomerular Filt Rate > 60; Glucose 93 mg/dL (65-110); Potassium 4.4 mmol/L (3.4-5.0); Sodium 127 mmol/L (137-145)
[2022-04-23 11:35] VITALS: O2SAT 97
[2022-04-23 11:45] VITALS: O2SAT 96
[2022-04-23 13:42] VITALS: BP 145/77; PULSE 78; RESP 16; O2SAT 96
== END 2022-04-23 14:06 | disposition home or self-care (01) ==
PROVIDERS: Emergency Provider Emergency Medicine
DX: R53.1 Weakness (principal); C79.51 Secondary malignant neoplasm of bone; D64.9 Anemia, unspecified; E87.1 Hypo-osmolality and hyponatremia; N40.0 Benign prostatic hyperplasia without lower urinary tract symptoms; Z87.891 Personal history of nicotine dependence
CPT/HCPCS: 36415; 80053; 85025; 85610; 85730; 86850; 86900; 86901; 99283

== ENCOUNTER 2022-05-01 14:23 | Outpatient (CLI) | payer MEDICARE, BC, SELFPAY ==
[2022-05-01 14:44] LABS: Basophils Absolute Auto 0.1 K/mm3 (0.0-0.1); Basophils Percent Auto 0.5 % (0.2-1.2); Eosinophils Absolute Auto 0.2 K/mm3 (0-0.3); Eosinophils Percent Auto 1.9 % (0-4.4); Hemoglobin 8.4 g/dL (14.0-18.0); Immature Granulocyte Absolute 0.22 K/mm3 (0.00-0.031); Immature Granulocyte Percent A 2.1 % (0-0.5); Lymphocytes Absolute Auto 1.03 K/mm3 (0.9-3.2); Lymphocytes Percent Auto 9.7 % (18.3-44.2); Mean Corpuscular HGB Conc 32.3 g/dl (32-36); Mean Corpuscular Hemoglobin 28.7 pg (26-34); Mean Corpuscular Volume 88.7 fl (80-100); Mean Platelet Volume 8.7 fl (7.4-10.4); Monocytes Absolute Auto 0.6 K/mm3 (0.1-0.6); Monocytes Percent Auto 5.4 % (2.6-8.5); Neutrophils Absolute Auto 8.6 K/mm3 (1.3-6.7); Neutrophils Percent Auto 80.4 % (45.5-73.1); Platelet Count Result 300 k/mm3 (150-375); Red Blood Count 2.93 M/mm3 (4.6-6.20); Red Cell Distribution Width 15.9 % (11.5-14.5); White Blood Count 10.6 K/mm3 (4.5-10.0)
[2022-05-01 16:31] LABS: Iron 37 ug/dL (49-181)
[2022-05-01 16:32] LABS: Alanine Aminotransferase 18 U/L (6-50); Albumin Level 3.6 g/dL (3.5-5.1); Alkaline Phosphatase 181 U/L (38-126); Anion Gap 9 mmol/L (8-16); Aspartate Amino Transferase 38 U/L (17-59); Bilirubin,Total 0.4 mg/dL (0.2-1.3); Blood Urea Nitrogen 20 mg/dL (9-20); Calcium 8.2 mg/dL (8.4-10.2); Carbon Dioxide 25 mmol/L (22-30); Chloride 95 mmol/L (98-107); Estimated Glomerular Filt Rate 58; Glucose 145 mg/dL (65-110); Lactate Dehydrogenase 575 U/L (120-246); Potassium 4.4 mmol/L (3.4-5.0); Sodium 129 mmol/L (137-145)
[2022-05-01 16:40] LABS: Percent Iron Saturation 14 % (20-50)
== END 2022-05-01 14:24 | disposition home or self-care (01) ==
LOC: ANHLAB 14:25
PROVIDERS: Visit Provider Internal Medicine Hematology & Oncology
DX: D64.9 Anemia, unspecified (principal); C19 Malignant neoplasm of rectosigmoid junction
CPT/HCPCS: 36415; 80053; 82607; 82728; 83540; 83550; 83615; 85025

== ENCOUNTER 2022-05-13 07:35 | Outpatient (CLI) | payer MEDICARE, BC, SELFPAY ==
--- NOTE | ~2022-05-13 | NM_ITS ---
NM bone scan whole body DATE: 05/13/2022 11:12 INDICATION: Prostate cancer TECHNIQUE: Routine anterior and posterior whole body images of the skeleton were obtained several toni rs after intravenous injection of 24.6 mCi 99m technetium MDP COMPARISON: None FINDINGS: Bilateral renal activity is observed. There is increased uptake at both knee joints and several foci of uptake at the ankle and foot areas, likely of degenerative etiology. 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 Reviewed, dictated and finalized at location B. 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
== END 2022-05-13 07:36 | disposition home or self-care (01) ==
LOC: ANHIMG 07:38
PROVIDERS: Visit Provider Internal Medicine Hematology & Oncology
DX: C61 Malignant neoplasm of prostate (principal); C79.51 Secondary malignant neoplasm of bone
CPT/HCPCS: 78306; A9561

== ENCOUNTER 2022-05-15 11:19 | Outpatient (CLI) | payer MEDICARE, BC, SELFPAY ==
--- NOTE | ~2022-05-15 | PE_ITS ---
EXAMINATION: PET_PETPSMAST_PT DATE: 05/15/2022 13:40 INDICATION: Prostate cancer TECHNIQUE: 9.476 mCi of pipflufolastat F-18 (18-F-DCFPyL) was administered i.v. Low dose computed to mography (CT) images were acquired from the base of the brain to the base of the brain to the proxima l thighs for attenuation correction and anatomic localization. Positron emission tomography (PET) philip ges were acquired in the same distribution beginning 92 minutes after injection. Images including fus ed PET/CT images were reconstructed in axial, coronal, and sagittal planes. Automated exposure contro l technique was employed. The dose-length product was 647.41mGy-cm. COMPARISON: Bone scan dated 05/13/2022 FINDINGS: Musculoskeletal: Widespread foci of prominent increased density estimated uptake throughout the axial and appendicular skeleton, the majority with corresponding sclerotic bone lesions on CT imaging and with correspondin g increased uptake on prior bone scan, all consistent with metastatic prostate cancer. Moderate cervi tawny and thoracic and severe lumbar spondylosis. Chronic appearing superior endplate compression fract ure at L4 with approximately 20% central vertebral body height loss. Head/neck: Typical pattern of symmetric physiologic increased activity in the lacrimal, parotid and submandibula r glands as well as along the mucosa of the oropharynx and nasopharynx. No pathologically enlarged ce rvical lymphadenopathy or other suspicious foci of abnormal soft tissue uptake in the visualized head or neck. Chest: Mild dependent atelectasis in the bilateral lower lobes. Additional mild discoid atelectasis along th e right minor fissure. No pneumonia, pulmonary edema, suspicious pulmonary nodules or pleural effusio n. Heart size is normal. No pericardial effusion. Thoracic aorta is normal in caliber. No pathologica lly enlarged or PSMA avid thoracic lymphadenopathy. Abdomen/pelvis/proximal thighs: Physiologic renal accumulation and excretion of activity in the kidneys, bladder and along portions o f ureters. Normal degree and slightly heterogenous pattern of increased uptake throughout the liver a nd spleen without radiologic correlate or dominant PSMA avid lesion. The gallbladder, pancreas and bi lateral adrenal glands are normal. Common uptake scattered throughout the bowels with typical duodena l predominance and without radiologic correlate, also likely physiologic. Extensive colonic diverticu losis without adjacent inflammatory stranding to suggest acute diverticulitis. Focal increased FDG up take with maximal SUV of 7.4 at the posterior prostate which could represent the site of the primary prostate cancer. No other abnormal foci of increased uptake or pathologically enlarged lymphadenopath y in the abdomen, pelvis or proximal thighs. Small fat-containing left inguinal hernia and small fat- containing umbilical hernia. IMPRESSION: 1. Widespread the right neck and PSMA avid bone lesions consistent with widespread metastatic prostat e cancer. No evident metastatic lymphadenopathy or other soft tissue metastases. 2. Small focus of moderate increased PSMA may activity at the posterior prostate which likely represe nts the site of the primary malignancy. 3. Small fat-containing umbilical and left inguinal hernias. Reviewed, dictated and finalized at location A. LY CASEWORKER IMPRESSION: 1. Widespread the right neck and PSMA avid bone lesions consistent with widespr ead metastatic prostate cancer. No evident metastatic lymphadenopathy or other soft tissue metastases. 2. Small focus of moderate increased PSMA may activity at the posterior prostat e which likely represents the site of the primary malignancy. 3. Small fat-containing umbilical and left inguinal hernias.
== END 2022-05-15 11:20 | disposition home or self-care (01) ==
PROVIDERS: Visit Provider Internal Medicine Hematology & Oncology
DX: C61 Malignant neoplasm of prostate (principal); M89.9 Disorder of bone, unspecified; K42.9 Umbilical hernia without obstruction or gangrene; K40.90 Unilateral inguinal hernia, without obstruction or gangrene, not specified as recurrent
CPT/HCPCS: 78815; A9595

== ENCOUNTER 2022-05-18 00:25 | Day surgery (SDC) | payer MEDICARE, BC, SELFPAY ==
--- NOTE | ~2022-05-18 | BM_ITS ---
EXAMINATION: CCL bone marrow asp w bx diag ORDER COMPLETED DATE: 05/18/2022 09:21 INDICATION: Chronic anemia. Metastatic prostate cancer. TECHNIQUE: A time-out was performed to verify the patient's name, date of , and procedure to b e performed. The procedure including the risks and benefits was discussed with the patient. Risks dis cussed included bleeding, infection, nerve injury and allergic reaction. The patient understood the r isks and agreed to proceed. The skin overlying the left posterior iliac spine was prepped and draped in usual sterile fashion. Anesthetic was administered with 1% lidocaine subcutaneously. Moderate con scious sedation was achieved with 50 mcg fentanyl IV. An 11 gauge needle was inserted into the ilium with fluoroscopic guidance. Bone marrow was aspirated. An 8 gauge needle was then inserted into the i lium with fluoroscopic guidance. A core bone marrow biopsy was obtained. The needle was removed and t he entry site was cleaned and dressed. There were no immediate complications. A total of 63 fluorosc opic images were recorded. Fluoroscopy exposure time was 0.1 minutes. FINDINGS: Real-time fluoroscopy demonstrates the biopsy needle tip overlying the left posterior iliac spine. IMPRESSION: 1. Successful fluoroscopic guided bone marrow aspiration. 2. Successful fluoroscopic guided bone marrow biopsy. Reviewed, dictated and finalized at location A. CAL HISTORIAN
[2022-05-18 07:15] VITALS: BP 140/85; PULSE 75; RESP 12; TEMP 36.8; O2SAT 95; BMI 24.3
[2022-05-18 07:31] LABS: Basophils Absolute Auto 0.1 K/mm3 (0.0-0.1); Basophils Percent Auto 1.1 % (0.2-1.2); Eosinophils Absolute Auto 0.4 K/mm3 (0-0.3); Eosinophils Percent Auto 5.9 % (0-4.4); Hematocrit 30.6 % (42.0-52.0); Hemoglobin 9.9 g/dL (14.0-18.0); Immature Granulocyte Absolute 0.09 K/mm3 (0.00-0.031); Immature Granulocyte Percent A 1.3 % (0-0.5); Lymphocytes Absolute Auto 1.84 K/mm3 (0.9-3.2); Lymphocytes Percent Auto 25.7 % (18.3-44.2); Mean Corpuscular HGB Conc 32.4 g/dl (32-36); Mean Corpuscular Hemoglobin 28.3 pg (26-34); Mean Corpuscular Volume 87.4 fl (80-100); Mean Platelet Volume 8.9 fl (7.4-10.4); Monocytes Absolute Auto 0.6 K/mm3 (0.1-0.6); Monocytes Percent Auto 8.8 % (2.6-8.5); Neutrophils Absolute Auto 4.1 K/mm3 (1.3-6.7); Neutrophils Percent Auto 57.2 % (45.5-73.1); Platelet Count Result 384 k/mm3 (150-375); Red Cell Distribution Width 15.6 % (11.5-14.5); White Blood Count 7.2 K/mm3 (4.5-10.0)
[2022-05-18 08:20] LABS: INR 1.1; Prothrombin Time 13.5 Seconds (11.1-14.7)
--- NOTE | 2022-05-18 08:27 | WPDMODSED ---
Moderate Sedation Note-Pt Data Patient Data Diagnosis: anemia, likely metastatic prostate cancer Present Complaint: weakness and anemia Procedure to be performed/Plan: bone marrow biopsy Allergies Allergy/AdvReac Type Severity Reaction Status Date / Time No Known Allergies Allergy Verified 05/18/22 07:18 Home Medications Medication Instructions Recorded Confirmed Type pantoprazole 40 mg tablet,delayed 40 mg PO QAM #30 tabs 04/20/22 05/18/22 Rx release solifenacin 5 mg tablet 5 mg PO DAILY 05/18/22 05/18/22 History Sedation/Anesthesia: No previous sedation/anesthesia problems (including family history). [facility] Past Medical History Medical History BPH (benign prostatic hyperplasia) Surgical History Surgical History H/O hernia repair Family History Family History Father Colon cancer Mother Bladder cancer Social History Social History Social History: The patient lives with his and has 1 child. The is the durable power attorney at law for healthcare. Patient denies use of alcohol or drug use. 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 Code status full code Smoking status: Former smoker Tobacco type: cigarettes Lack of Transportation: No Lack of Food: Never True Current Housing: I Have Housing Concerned About Future Housing: No Difficulty Paying Gas/Electric Bills: No Difficulty Paying for Meds: No Currently Unemployed: No Education: High School Diploma/GED Difficulty w/ Childcare or Family Care: No Gender identity (if verbalized by the patient): Male Spiritual care concerns: No Mod Sed Physical Exam Physical Exam Pre Procedural Exam: Normal: Appearance, Eyes, Throat, Lungs, Heart Rate, Heart Rhythm and Abdomen Hours since solid foods: 6 Hours since liquid intake: 6 Mallampati Classification: class 1 Internal Medicine - PN: Obj Da Vital Signs Vital Signs: Vital Signs - 24 hr 05/18/22 07:15 Temperature 98.2 F Pulse Rate 75 Respiratory Rate 12 Blood Pressure 140/85 Pulse Oximetry 95 Oxygen Delivery Room Air Labs 05/18/22 07:17 Labs: Laboratory Results - last 24 hr 05/18/22 05/18/22 07:17 07:17 WBC 7.2 RBC 3.50 L Hgb 9.9 L Hct 30.6 L MCV 87.4 MCH 28.3 MCHC 32.4 RDW 15.6 H Plt Count 384 H MPV 8.9 Immature Gran % (Auto) 1.3 H Neut % (Auto) 57.2 Lymph % (Auto) 25.7 [place] % (Auto) 8.8 H Eos % (Auto) 5.9 H Baso % (Auto) 1.1 Lymph # (Auto) 1.84 [place] # (Auto) 0.6 Eos # (Auto) 0.4 H Baso # (Auto) 0.1 Abs Immat Gran (auto) 0.09 H Absolute Neuts (auto) 4.1 Absolute Nucleated RBC 0.0 Nucleated RBC % 0.0 PT 13.5 INR 1.1 ASA Classification/Sedation ASA Classification/Sedation ASA Class: III Emergent: No Risks: Risks, benefits and alternatives explained and patient/family accepted plan for sedation. Patient re-evaluated immediately prior to sedation.
[2022-05-18 09:10] VITALS: BP 152/83; PULSE 68; RESP 14; TEMP 36.8
[2022-05-18 09:40] VITALS: BP 136/80; PULSE 64; RESP 12
[2022-05-18 10:15] VITALS: BP 136/80; PULSE 62; RESP 12; O2SAT 96
== END 2022-05-18 10:30 | disposition home or self-care (01) ==
PROVIDERS: Referring Provider Internal Medicine Hematology & Oncology; Visit Provider Radiology Diagnostic Radiology
DX: C79.51 Secondary malignant neoplasm of bone (principal); D64.9 Anemia, unspecified; C61 Malignant neoplasm of prostate
CPT/HCPCS: 36415; 38222; 85025; 85610; 88184; 88185; 88305; 88311; 88313; 88342; J1642; J2250; J3010; J7040

== ENCOUNTER 2022-06-01 01:06 | Day surgery (SDC) | payer MEDICARE, BC, SELFPAY ==
--- NOTE | 2022-05-27 08:47 | PC.NURSE ---
Report to the Outpatient Waiting Room, entrance under the green pavilion located off [address], at time __1200 on date _06/01/22 . Planned Procedure Time: _1400 . Time changes happen often and if your time is changed the preop area will call you the afternoon before. - You and your visitor will be asked to self-screen and do not enter if you have any COVID symptoms. - Only one visitor is requested with a max of two and NO children visitors are allowed at this time. - The patient visitor may be requested to leave or wait in car when not with patient due to distancing restrictions. - A mask is optional within the hospital. Patients may have clear liquids (water, carbonated beverages, clear teas, apple juice) until 3 hours prior to surgery with a maximum of 20 ounces. - No food from midnight until time of surgery - Infants may have breast milk until 4 hours before surgery, formula 6 hours prior to surgery. - Children will be allowed to drink immediately following surgery. If applicable, please bring a bottle or sippy cup to assist with drinking. Juice, water, soda, and popsicles are readily available. For infants on formula, please bring formula the day of surgery. Pacifiers are allowed. Take the following medications with a SIP of water the morning of surgery: ___NONE Medications to discontinue per physician ALL VITAMINS AND SUPPLEMENT 3 DAYS PRE OP Date to take last dose__05/28/22 Please no make-up, nail cymro, hairspray, perfume, deodorant, or body powder the day of surgery. No jewelry (including any body piercings) or valuables the day of surgery, leave them at home. Please take a shower or bath the night before, or the morning of, surgery with an antibacterial soap. Wear comfortable, loose fitting clothing. Children are encouraged to wear pajamas. - Jewelry must be removed prior to entering the operating room. Rings and piercings that are not removed may be cut off. - The hospital will not accept responsibility for valuables. - Please leave all valuables, including medications, at home the day of surgery. If you are going home after surgery, a licensed driver license reviewing officer must drive you home. - NO public transportation without another adult if you receive anesthesia. - We recommend that an adult stay with you for 24 hours following discharge. - We also recommend that you do not drive, make important decision, drink alcoholic beverages, or take any drugs that were not prescribed by your health care provider for at least 24 hours after your discharge t Follow any additional instructions given to you from your surgeon. If you or anyone in your household have experienced Covid symptoms in the past week, please notify your surgeon or the nurse liaison at the phone number below for possible testing. Telephone instructions given to PT'S WIFE_PAT and asked if any additional questions and then verbalized understanding. Patient advised to call surgeon office or pre surgery nurse liaison [phone] if any additional questions.
[2022-05-27 09:06] VITALS: BMI 24.8
--- NOTE | 2022-05-29 15:46 | PM.HPGS ---
History of Present Illness History of Present Illness Consent: Risks, benefits, and alternatives of placement of a Port-A-Cath have been discussed and questions answered. Patient agrees to proceed with procedure. Chief complaint: prostate cancer Narrative: Dereck Blum is a 82 year old male who last month in April of 2022 had a bone marrow biopsy showing metastatic prostate cancer. He has seen Dr. No and they are planning for chemotherapy using Taxotere and hormone therapy. He will also be receiving 5 mg of prednisone twice a day. PET scan on May 18 showed widespread skeletal metastasis. Because of this he is presenting today for placement of a vascular access device. We were planning to place a Port-A-Cath most likely on the right. Patient has not had previous surgery on his head or neck. Review of Systems Constitutional: Constitutional: Reports no additional constitutional complaints, Reports fatigue and Denies malaise Eyes: Eyes: Denies change in vision and Denies loss of vision ENT: Reports Normal hearing present, Denies change in voice, Denies dizziness, Denies hoarseness and Denies sore throat Cardiovascular: Cardiovascular: Denies chest pain, Denies leg edema and Denies dyspnea Respiratory: Respiratory: Denies cough, Denies dyspnea and Denies wheezing Gastrointestinal: Gastrointestinal: Denies hematochezia, Denies change in bowel habits and Denies heartburn Genitourinary: Genitourinary: Denies urinary frequency and Denies urinary incontinence Neurologic: Reports Normal hearing present, Denies confusion, Denies dizziness, Denies loss of vision, Denies memory loss and Denies seizure-like activity Psychiatric: Psychiatric: Denies confusion, Denies depression and Denies memory loss Endocrine: Endocrine: Denies cold intolerance and Reports fatigue Hematologic/Lymphatic: Hematologic/Lymphatic: Denies easy bleeding and Denies easy bruising Comments: history of anemia, ( most recent CBC from May 01 showed hemoglobin 8.4 platelets 176138 Allergic/Immunologic: Allergic/Immunologic: Denies wheezing PMFSH Past Medical History Medical History BPH (benign prostatic hyperplasia) Prostate CA Surgical History Surgical History H/O hernia repair Family History Family History Father Colon cancer Mother Bladder cancer Social History Social History Social History: The patient lives with his and has 1 child. The is the durable power workers compensation attorney for healthcare. Patient denies use of alcohol or drug use. 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 Code status full code Smoking packs per day: 0.5 Smoking cigarettes per day: 10.0 Years smoked: 3 Smoking pack-years: 1.50 Smoking status: Former smoker Tobacco type: cigarettes Smoking end date: 06/14/57 Lack of Transportation: No Lack of Food: Never True Current Housing: I Have Housing Concerned About Future Housing: No Difficulty Paying Gas/Electric Bills: No Difficulty Paying for Meds: No Currently Unemployed: No Education: High School Diploma/GED Difficulty w/ Childcare or Family Care: No Living arrangements: with family Gender identity (if verbalized by the patient): Male Spiritual care concerns: No Meds Home Medications and Allergies Home Medications Medication Instructions Recorded Confirmed Type pantoprazole 40 mg tablet,delayed 40 mg PO QAM #30 tabs 04/20/22 05/27/22 Rx release solifenacin 5 mg tablet 5 mg PO DAILY 05/18/22 05/27/22 History calcium carbonate 600 mg-vitamin 1 cap PO BID 05/27/22 05/27/22 History D3 10 mcg (400 unit) capsule ferrous sulfate 325 mg (65 mg 325 mg PO BID 05/27/22 05/27/22 History iron) tablet Allergies A
--- NOTE | 2022-05-30 09:52 | P.PNAN_ITS ---
Anes - Initial Pre Proc Eval Procedure: Operation Date: 06/01/22 12:00 Proposed Procedures p Insertion Jacoby Cath - Mike Wright MD Date/Time: 05/30/22 09:52 Surgeon: Mike Wright MD Pre Op Diagnosis: prostate cancer Patient Data Age: 82 Gender: M Height: 1.8 m Weight: 80.75 kg Allergies Allergy/AdvReac Type Severity Reaction Status Date / Time No Known Allergies Allergy Verified 05/27/22 08:38 Home Medications Medication Instructions Recorded Confirmed Type pantoprazole 40 mg tablet,delayed 40 mg PO QAM #30 tabs 04/20/22 05/27/22 Rx release solifenacin 5 mg tablet 5 mg PO DAILY 05/18/22 05/27/22 History calcium carbonate 600 mg-vitamin 1 cap PO BID 05/27/22 05/27/22 History D3 10 mcg (400 unit) capsule ferrous sulfate 325 mg (65 mg 325 mg PO BID 05/27/22 05/27/22 History iron) tablet Patient hx anesthesia problems: none Family hx anesthesia problems: none Results Review: All pre-operative results and documents have been reviewed as part of the pre- operative evaluation. [facility] Past Medical History Medical History (Updated 05/30/22 @ 09:53 by Lazaro Bergeron MD) BPH (benign prostatic hyperplasia) Prostate CA Surgical History Surgical History H/O hernia repair Family History Family History Father Colon cancer Mother Bladder cancer Social History Social History Social History: The patient lives with his and has 1 child. 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 Patient denies use of alcohol or drug use. 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 Code status full code Smoking packs per day: 0.5 Smoking cigarettes per day: 10.0 Years smoked: 3 Smoking pack-years: 1.50 Smoking status: Former smoker Tobacco type: cigarettes Smoking end date: 06/14/57 Lack of Transportation: No Lack of Food: Never True Current Housing: I Have Housing Concerned About Future Housing: No Difficulty Paying Gas/Electric Bills: No Difficulty Paying for Meds: No Currently Unemployed: No Education: High School Diploma/GED Difficulty w/ Childcare or Family Care: No Living arrangements: with family Gender identity (if verbalized by the patient): Male Spiritual care concerns: No Anes - Eval Final PreProcedure Day of Procedure 05/30/22 09:52 Patient weight: normal Heart: regular rate and rhythm Lungs: clear to auscultation Airway: Mallampati scale class II Neurological: alert and oriented Last oral intake: >/= 8 hours ASA classification: IV Emergent: no Anesthetic plan: proceed Anesthesia type and monitoring: general GIVS and LMA and standard monitoring Results Review: All pre-operative results and documents have been reviewed as part of the pre- operative evaluation. Informed Consent: The patient's anesthetic plan and its attendant risks and benefits were discussed with the patient/family/POA. Questions were solicited and answers provided to the satisfaction of the patient/family/POA.
--- NOTE | ~2022-06-01 | XR_ITS ---
EXAMINATION: XR fl guide central line place DATE: 06/01/2022 12:31 INDICATION: Port catheter insertion TECHNIQUE: 2 fluoroscopic images of the right shoulder and inferomedial right hemithorax were obtaine d during procedure performed by Dr. Wright. Radiologist was not present for the imaging or procedure . The amount of fluoroscopy time used during this procedure was 0.7 minutes. COMPARISON: None. FINDINGS: Right internal jugular central venous port catheter with distal tip in the region of the superior cav oatrial junction. Visualized portion of the right lung are clear. 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 IMPRESSION: 1. Right internal jugular central venous port catheter with distal tip near the superior cavoatrial j unction. Reviewed, dictated and finalized at location B. HOUSE HAND IMPRESSION: 1. Right internal jugular central venous port catheter with distal tip near the superior cavoatrial junction.
--- NOTE | ~2022-06-01 | XR_ITS ---
Portable chest x-ray Comparison: 04/17/2022 Clinical History: Line placed Findings: Right-sided Mediport in satisfactory position. Lungs are clear. No consolidation, effusion , or pneumothorax. Cardiomediastinal silhouette is stable. Bones and soft tissues are unremarkable. Impression: Right-sided Mediport in place. Clear lungs. Reviewed, dictated and finalized at location [] FOLDER Impression: Right-sided Mediport in place. Clear lungs.
[2022-06-01 10:10] VITALS: BMI 24.9
[2022-06-01 10:15] VITALS: BP 154/73; PULSE 66; RESP 16; TEMP 36.1; O2SAT 100
[2022-06-01] MEDS: LACTATED RINGERS 1,000 ML 30 ML IV CONT (10:45)
[2022-06-01] MEDS: KETOROLAC 15 MG/ML VIAL (*BKC) IV PUSH (10:52)
--- NOTE | 2022-06-01 11:17 | WPDHPUPDATE1 ---
History and Physical Update Update Date/Time: 06/01/22 11:17 History and Physical has been reviewed, including an updated exam of the patient. There are NO changes in the patient's condition. Risks, benefits, and alternatives have been discussed and questions answered. Patient agrees to proceed with procedure.
[2022-06-01] MEDS: ceFAZolin 2 GM/D5W 50 ML 2 GM/50 ML BAG IVPB (11:32)
[2022-06-01 12:42] VITALS: BP 121/69; PULSE 64; RESP 12; TEMP 36.2; O2SAT 96
[2022-06-01] MEDS: BUPIVACAINE/EPINEPHRINE 0.5% 10 ML VIAL 20 ML INFILTRATE (12:46)
--- NOTE | 2022-06-01 12:50 | W.PM.PROC2 ---
Procedure Note - Detailed Date of Procedure 06/01/22 Pre-op Diagnosis prostate cancer with metastasis to the bone. Post-op Diagnosis Same Procedure Performed 1. Placement of Jacoby-cath. 2. Use of US for vascular access site selection and visualization of needle access to vein. Surgeon Mike Wright MD [employer]NARD.OR supply chain assistant Anesthesia Local (with 0.5% Marcaine with epinepherine) and Other (GIVS) Indications Patient has metastatic prostate cancer to the bones and will be undergoing chemotherapy. His medical oncologist has recommended a vascular access device to give better access for chemotherapy, blood draws and other medications. Findings Normal vascular anatomy in the right neck. Description of Procedure Patient was seen and marked in the pre-op area prior to coming to the OR. Patient was brought to the operating room. Patient was placed supine on the operating table and general IV sedation was induced. The nurse maintenance of way foreman provided continuous monitoring, oxygen, and IV sedation or general anesthesia with IV sedation as was appropriate for the patient's condition. (See anesthesia notes). Patient's head was carefully turned to the left side while in the supine position and the patient's entire neck and anterior chest on both sides was prepped and draped in the usual sterile fashion. Following this the appropriate time-out was completed confirming procedure and patient. We confirmed that all the needed equipment was present in the room including the vascular ultrasound probe and machine. Following this the ultrasound probe was draped into the field and using the probe we carefully identified the carotid artery and jugular vein on the right neck. I then saved an image of the vascular anatomy of the neck, which documented the selected vessels patency and transferred it from the ultrasound machine to the BMP [employer] chart. I marked the skin directly over the right internal jugular vein. I then used an 11 blade knife to make a small riley in the skin. Following this, using the continuous ultrasound guidance, a Cook needle was placed through the skin incision and on into this vein. I then was able to draw back good dark blood. Once this was completed a guidewire using a J-tip was advanced through the needle and then the needle and the guidewire cover were withdrawn. C-arm fluoroscopy was used to confirm that the guidewire was nicely in the central venous system. Once this was confirmed with the C - arm, I preceded on by making the pocket for the port on the patient's anterior right chest approximately 3 centimeters below the clavicle overlying the chest wall. Local anesthetic was infiltrated into the skin where there was a transverse incision marked out. Incision was made and we made a pocket inferior to the incision with just a little dissection superior. The Bard low-profile port was tried in the pocket and seemed to fit well. Following this the catheter which had been placed on a tunneling device was tunneled from the port site on the anterior right chest up to the right neck where the small incision had been made slightly larger with an #11 blade knife. Then the catheter was pulled through so that we would have 16 centimeters to put into the central venous system once the dilation took place. Following this we placed the dilator and sheath over the guidewire in the jugular vein and carefully dilated the tract into the central venous system. The guidewire and dilator were then removed. The end of the catheter which had been removed from the tunneling device and the tip checked was then inserted into the sheath and into the neck. I then carefully pulled the 2 arms of the tear-away sheath away as the catering administrative assistant held the catheter in position with a DeBakey forceps. Following this we checked the position of the catheter with C-arm fluoroscopy confirming that the tip seemed to be in the distal superior vena cava near the junction with the r
[2022-06-01 12:55] VITALS: BP 115/68; PULSE 65; O2SAT 97
--- NOTE | 2022-06-01 12:57 | SUR.PHASEII ---
1255 CHEST XRAY DONE
[2022-06-01 13:25] VITALS: BP 120/69; PULSE 53; RESP 16; O2SAT 97
[2022-06-01 13:50] VITALS: BP 142/82; PULSE 60; RESP 16
--- NOTE | 2022-06-01 15:13 | SUR.PHASEII ---
PATIENT CALLED, SPOKE WITH HIS TO CLARIFY THAT PATIENT TAKE EITHER EXTRA STRENGTH TYLENOL OR HYDROCODONE WITH TYLENOL EVERY 6 HOURS NEEDED BUT NOT BOTH WITHIN SAME 6 HOUR TIMEFRAME.
--- NOTE | 2022-06-02 10:15 | WPDANESPN ---
Anes - Prog Note Post-Op Date/Time: 06/02/22 10:15 Cardiovascular status: normal Respiratory status: normal Airway patency: baseline Mental status: baseline Post-Op hydration status: normal Vital Signs: Last Vital Signs Temp 97.1 F L 06/01/22 12:42 Pulse 60 06/01/22 13:50 Resp 16 06/01/22 13:50 BP 142/82 H 06/01/22 13:50 Pulse Ox 97 06/01/22 13:25 O2 Del Method Room Air 06/01/22 13:25 Pain Score (VAS): 0/10 Post-procedural complaints: none Patient Feedback: Patient satisfied with anesthetic care.
== END 2022-06-01 13:57 | disposition home or self-care (01) ==
PROVIDERS: Visit Provider Surgery
PROC: (CPT 36561; principal; 2022-06-01 12:00)
DX: C61 Malignant neoplasm of prostate (principal); C79.51 Secondary malignant neoplasm of bone; D64.9 Anemia, unspecified; Z87.891 Personal history of nicotine dependence
CPT/HCPCS: 36561; 76937; 77001; C1788; J0690; J1644; J1885; J2405; J2704; J3010; J7030; J7120

== ENCOUNTER 2022-08-13 12:18 | Outpatient (CLI) | payer MEDICARE, BC, MEDICAID, SELFPAY ==
--- NOTE | ~2022-08-13 | XR_ITS ---
XR abdomen/kub 1V 08/13/2022 13:32 Indication: Abdominal pain. Procedure: KUB Comparison: CT dated 08/13/2022 Findings: Bowel gas pattern nonobstructive. Moderate colonic fecal loading. Severe lumbar spondylosis . Patchy sclerosis of the lower lumbar spine, pelvis and hips, consistent with metastatic disease. 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 There are radiodensities in the left upper abdomen, consistent wit h bowel content. Impression: 1: No acute abdominal abnormality. 2: Osseous metastases. Reviewed, dictated and finalized at location L. ESSIONAL SERVICES MANAGER Impression: 1: No acute abdominal abnormality. 2: Osseous metastases.
--- NOTE | ~2022-08-13 | CT_ITS ---
Non-contrast CT scan of the Abdomen and Pelvis Clinical indication: Abdominal pain Technique: 2.5 mm axial scans were obtained through the abdomen and pelvis without intravenous or or al contrast. Dose reduction technique was used on this scan by utilizing automated exposure control a nd iterative reconstruction technique. The dose-length product (DLP) was 438.05 mGy-cm. Findings: Images through the lung bases reveal no abnormalities. There is no evidence of renal or ureteral calculi. The kidneys and the ureters are nondilated. The liver, spleen, pancreas, gallbladder, and adrenals appear normal. There is no aortic aneurysm. There is no evidence of bowel obstruction. Moderate fat-containing umbilical hernia present. There is sigmoid diverticulosis, without evidence for acute diverticulitis. Images through the pelvis were performed. There is no evidence of ascites or lymphadenopathy. Urinary bladder unremarkable. Prostate gland and seminal vesicles are unremarkable. Extensive sclerotic osseous metastatic disease is present. Impression: Moderate sized fat-containing umbilical hernia. Extensive sclerotic osseous metastatic disease. This is most likely related to underlying prostate ca rcinoma. Correlate with any known or relevant clinical history. Reviewed, dictated and finalized at [facility]. WADDY Impression: Moderate sized fat-containing umbilical hernia. Extensive sclerotic osseous metastatic disease. This is most likely related to underlying prostate carcinoma. Correlate with any known or relevant clinical hi story.
== END 2022-08-13 12:19 | disposition home or self-care (01) ==
PROVIDERS: PCP Internal Medicine Hematology & Oncology; Visit Provider Nurse Practitioner Adult Health
DX: K42.9 Umbilical hernia without obstruction or gangrene (principal); C79.51 Secondary malignant neoplasm of bone; R10.9 Unspecified abdominal pain
CPT/HCPCS: 74018; 74176

== ENCOUNTER 2023-01-18 12:28 | Outpatient (CLI) | payer MEDICARE, BC, MEDICAID, SELFPAY ==
--- NOTE | ~2023-01-18 | MR_ITS ---
EXAMINATION: MR lumbar spine wo/w con DATE: 01/18/2023 13:38 INDICATION: Low back pain. Right leg pain. Lumbar radiculopathy. TECHNIQUE: Magnetic resonance imaging (MRI) of the lumbar spine was performed without and with 17 mL MultiHance intravenous contrast. COMPARISON: CT abdomen and pelvis 08/13/2022 FINDINGS: There is 3 mm retrolisthesis of L1 on L2 and L2 on L3. There is a compression fracture of L 4 with 2/5 loss of height centrally. There is 6 mm anterolisthesis of L4 on L5. There are lesions of bone marrow replacement at most levels of the spine and in the pelvic bones. There is mildly decrease d disc height at L1-L2, severely decreased disc height at L2-L3 and L3-L4, and mildly decreased disc height at L4-L5. There is severely decreased disc height at L5-S1 with interbody fusion. The distal s sean cord signal intensity is normal. The conus medullaris is at T12-L1. The following disc levels a re specifically discussed: L1-L2: The disc is bulging. There is severe bilateral facet joint osteoarthritis. There is mild bilat eral neural foraminal stenosis. There is mild central canal stenosis. L2-L3: The disc is bulging and has an annular fissure. There is moderate bilateral facet joint osteoa rthritis. There is mild bilateral neural foraminal stenosis. There is mild central canal stenosis. L3-L4: The disc is bulging and has an annular fissure. There is severe bilateral facet joint osteoart hritis. There is mild bilateral neural foraminal stenosis. There is mild central canal stenosis. L4-L5: The disc is bulging and has an annular fissure. There is severe bilateral facet joint osteoart hritis. There is mild right and moderate left neural foraminal stenosis. There is severe central vaishnavi l stenosis. L5-S1: There is mild bilateral facet joint osteoarthritis. There is mild bilateral neural foraminal s tenosis. There is mild central canal stenosis. IMPRESSION: 1. Severe lumbar spondylosis. 2. Widespread bone lesions, consistent with metastatic disease, stable from 08/13/2022. Reviewed, dictated and finalized at location A. IMPRESSION: 1. Severe lumbar spondylosis. 2. Widespread bone lesions, consistent with metastatic disease, stable from 08/13.
== END 2023-01-18 12:29 | disposition home or self-care (01) ==
PROVIDERS: PCP Nurse Practitioner Adult Health; Visit Provider Nurse Practitioner Adult Health
DX: M47.26 Other spondylosis with radiculopathy, lumbar region (principal)
CPT/HCPCS: 72158; A9577

== ENCOUNTER 2023-03-23 12:25 | Outpatient (CLI) | payer MEDICARE, BC, MEDICAID, SELFPAY ==
[2023-03-23 12:47] LABS: Hematocrit 33.2 % (42.0-52.0); Hemoglobin 10.9 g/dL (14.0-18.0)
== END 2023-03-23 12:26 | disposition home or self-care (01) ==
LOC: ANHSURGERY 12:31
PROVIDERS: Anesthesiology; PCP Family Medicine; Visit Provider Surgery
DX: K42.0 Umbilical hernia with obstruction, without gangrene (principal); D64.9 Anemia, unspecified; Z01.818 Encounter for other preprocedural examination
CPT/HCPCS: 36415; 85014; 85018; 86850; 86900; 86901

== ENCOUNTER 2023-03-25 00:12 | Day surgery (SDC) | payer MEDICARE, BC, MEDICAID, SELFPAY ==
--- NOTE | 2023-03-19 07:59 | PC.NURSE ---
Report to the Outpatient Waiting Room, entrance under the green pavilion located off [facility], at time __1000 on date __03/25/23 . Planned Procedure Time: __1200 . Time changes happen often and if your time is changed the preop area will call you the afternoon before. - You and your visitor will be asked to self-screen and do not enter if you have any COVID symptoms. - A mask is optional within the hospital at this time. Patients may have clear liquids (water, carbonated beverages, clear teas, apple juice) until 3 hours prior to surgery with a maximum of 20 ounces. - No food from midnight until time of surgery - Infants may have breast milk until 4 hours before surgery, formula 6 hours prior to surgery. - Children will be allowed to drink immediately following surgery. If applicable, please bring a bottle or sippy cup to assist with drinking. Juice, water, soda, and popsicles are readily available. For infants on formula, please bring formula the day of surgery. Pacifiers are allowed. Take the following medications with a SIP of water the morning of surgery: ____NONE DO NOT STOP ANY OF YOUR OTHER PRESCRIPTION MEDICATIONS PRIOR TO SURGERY ?EXCEPT THE FOLLOWING Medications to discontinue per physician ALL VITAMINS AND SUPPLEMENTS _3 DAYS PRE OP .LAST DOSE 03/21/23 HIBICLENS SHOWER MORNING OF SURGERY Please no make-up, nail greek, hairspray, perfume, deodorant, or body powder the day of surgery. No jewelry (including any body piercings) or valuables the day of surgery, leave them at home. Please take a shower or bath the night before, or the morning of, surgery with an antibacterial soap. Wear comfortable, loose fitting clothing. Children are encouraged to wear pajamas. - Jewelry must be removed prior to entering the operating room. Rings and piercings that are not removed may be cut off. - The hospital will not accept responsibility for valuables. - Please leave all valuables, including medications, at home the day of surgery. If you are going home after surgery, a licensed jeep driver must drive you home. - NO public transportation without another adult if you receive anesthesia. - We recommend that an adult stay with you for 24 hours following discharge. - We also recommend that you do not drive, make important decision, drink alcoholic beverages, or take any drugs that were not prescribed by your health care provider for at least 24 hours after your discharge time. Follow any additional instructions given to you from your surgeon. If you or anyone in your household have experienced Covid symptoms in the past week, please notify your surgeon or the nurse liaison at the phone number below for possible testing. Telephone instructions given to _SPOUSE PAT and asked if any additional questions and then verbalized understanding. Patient advised to call surgeon office or pre surgery nurse liaison [phone] if any additional questions.
[2023-03-19 08:17] VITALS: BMI 29.2
[2023-03-25] VITALS (12 sets, daily range): BP systolic 115–159; BP diastolic 63–83; PULSE 68–79; RESP 12–20; TEMP 36.3–37.2; O2SAT 93–100
[2023-03-25] MEDS: ACETAMINOPHEN 500 MG TABLET 1000 MG PO (11:14)
[2023-03-25] MEDS: KETOROLAC 15 MG/ML VIAL (*BKC) IV PUSH (11:22)
--- NOTE | 2023-03-25 11:44 | WPDANESEPPF ---
Anes - Initial Pre Proc Eval Procedure: Operation Date: 03/25/23 12:00 Proposed Procedures p Robotic Repair Umbilical Hernia with Mesh - Fitz Hooker MD Date/Time: 03/25/23 11:44 Surgeon: Fitz Hooker MD Pre Op Diagnosis: Umb Hernia- (3cm) Patient Data Age: 82 Gender: M Height: 1.68 m Weight: 82.1 kg Allergies Allergy/AdvReac Type Severity Reaction Status Date / Time No Known Allergies Allergy Verified 03/19/23 07:47 Home Medications Medication Instructions Recorded Confirmed Type calcium carbonate 600 mg-vitamin 1 cap PO BID 05/27/22 03/25/23 History D3 10 mcg (400 unit) capsule ferrous sulfate 325 mg (65 mg 325 mg PO BID 05/27/22 03/25/23 History iron) tablet enzalutamide 40 mg capsule (Xtandi) 160 mg PO QPM 06/17/22 03/25/23 History ascorbic acid (vitamin C) 500 mg 500 mg PO BID 07/20/22 03/25/23 History tablet (Vitamin C) biotin 5,000 mcg disintegrating 10,000 mcg PO DAILY 02/19/23 03/25/23 History tablet docusate sodium 50 mg capsule 50 mg PO DAILY 02/19/23 03/25/23 History (Stool Softener) melatonin 10 mg capsule 10 mg PO QHS 02/19/23 03/25/23 History famotidine 20 mg tablet (Pepcid) 20 mg PO DAILY 03/19/23 03/25/23 History vit A 7,160 unit-vit C 113 mg-vit 1 tablet PO DAILY 03/19/23 03/25/23 History E 100 [id number] tablet Patient hx anesthesia problems: none Family hx anesthesia problems: none Results Review: All pre-operative results and documents have been reviewed as part of the pre-operative evaluation. FORMERLY [facility], [facility]–1983 Past Medical History Medical History (Updated 03/08/23 @ 14:31 by Zaida Schultz) BPH (benign prostatic hyperplasia) History of blood transfusion Lumbar spondylosis Prostate CA Surgical History Surgical History H/O hernia repair Family History Family History Father Colon cancer Mother Bladder cancer Social History Social History Social History: The patient lives with his and has 1 child. 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 Patient denies use of alcohol or drug use. 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 Code status full code Smoking packs per day: 0.5 Smoking cigarettes per day: 10.0 Years smoked: 3 Smoking pack-years: 1.50 Smoking status: Former smoker Tobacco type: cigarettes Smoking end date: 06/14/57 Alcohol intake: never Substance use: never Substance use type: does not use Lack of Transportation: No Lack of Food: Never True Current Housing: I Have Housing Concerned About Future Housing: No Difficulty Paying Gas/Electric Bills: No Difficulty Paying for Meds: No Currently Unemployed: No Education: High School Diploma/GED Difficulty w/ Childcare or Family Care: No Living arrangements: with family Gender identity (if verbalized by the patient): Male Sexual Orientation (if Verbalized by the Patient): Straight or Heterosexual Spiritual care concerns: No Agree to blood products: Yes Anes - Eval Final PreProcedure Day of Procedure 03/25/23 11:44 Patient weight: normal Heart: regular rate and rhythm Lungs: clear to auscultation Airway: Mallampati scale class III (have glidescope available ) Neurological: alert and oriented Last oral intake: >/= 8 hours ASA classification: III Emergent: no Anesthetic plan: proceed Anesthesia type and monitoring: general ETT and standard monitoring Results Review: All pre-operative results and documents have been reviewed as part of the pre-operative evaluation. Informed Consent: The patient's anesthetic plan and its attendant risks and benefits were discussed with the patient/family/POA. Questions were solicited and answers provided to the satisfaction of the patient/family/POA.
--- NOTE | 2023-03-25 11:56 | WPDHPUPDATE1 ---
History and Physical Update Update Date/Time: 03/25/23 11:56 History and Physical has been reviewed, including an updated exam of the patient. There are NO changes in the patient's condition. Risks, benefits, and alternatives have been discussed and questions answered. Patient agrees to proceed with procedure.
[2023-03-25] MEDS: ceFAZolin 2 GM/D5W 50 ML 2 GM/50 ML BAG IVPB (12:12)
[2023-03-25] MEDS: BUPIVACAINE/EPINEPHRINE 0.5% 50 ML VIAL 21 ML INFILTRATE (12:58)
--- NOTE | 2023-03-25 13:55 | W.PM.PROC2 ---
Procedure Note - Detailed Date of Procedure 03/25/23 Pre-op Diagnosis Umb Hernia- (3cm) Post-op Diagnosis Other (Umbilical hernia with 3.5 cm defect) Procedure Performed Robotic laparoscopic repair of 3.5 cm umbilical hernia with mesh Surgeon Fitz Hooker MD Technology Assistant Levon ROBERT Anesthesia General and Local (0.5% Marcaine with epinephrine) Indications Patient is an 82-year-old man with metastatic prostate cancer. He has had an umbilical hernia for a while but it has gotten larger and is painful. He is taken to surgery now for robotic laparoscopic repair with mesh Findings Hernia defect was 3.5 cm by 3 cm. There was omentum in the hernia sac. Description of Procedure Patient was taken to surgery and induced into general anesthesia. Kidney rest was placed so that the left flank was well exposed. Prep and drape was carried out. The initial trocar was in the left subcostal position somewhat laterally. Local was infiltrated and incision made. The varies needle was introduced. Insufflation was carried out until adequate distension. A 5 mm applied Medical trocar was then placed. A camera was placed and showed intraperitoneal location. The umbilical hernia was reviewed. Under direct visualization, the camera and left-sided instrument trocars were placed under direct visualization. Local was infiltrated prior to the incision in both cases. We then switched the camera to 1 of these 8 mm robotic trocars. The 5 mm trocar was exchanged for an 8 mm robotic trocar. The robot was then brought into the field and positioned. The camera was docked and targeted. The robotic operating instruments were then placed. The surgeon then went to the robotic console after breaking scrub. The omentum was reduced from the hernia with minimal dissection. I then took down some fatty tissue in the caudal midline as well as the falciform ligament in the cephalad midline so that there would be plenty of room for mesh placement without fatty tissue intervening. In 0 V lock suture was then placed in the abdomen. The hernia defect was closed transversely with the V lock suture. A 15 x [address] mesh was then introduced. It was positioned appropriately and then the suture from the V lock was passed through the center of the mesh. The mesh was then pushed up so that it was position directly under the repair. The V lock suture was then used to tack the right side of the mesh to the anterior abdominal wall. 2-0 V lock suture was then brought into the field. Starting on the right side, a running 2 0 V lock suture was placed around the entire circumference of the mesh. This lasted for 3/4 of the suturing. The last 1/4 required change of suture to 2-0 Stratafix which was used to complete the circumferential fixation of the mesh to the anterior abdominal wall. The mesh was in good position. Stratafix was run further across the mesh to secure it to the anterior abdominal wall further. All looked good. The suture and needles were then removed. The repair again was checked and looked satisfactory. The robot was undocked after removing the instruments. CO2 was evacuated and the trocars were removed. Skin wounds closed with subcuticular 4-0 Monocryl skin suture. The wounds were dressed with Exofin surgical adhesive. A scrotal support was placed. Patient was awakened and taken to recovery in good condition. Sponge and needle counts were correct x2. Implants 10 x [address] mesh Estimated Blood Loss -5 Drains No Packing No Pathology None sent Complications No immediate complications Condition Stable Disposition PACU [facility] Billing Surgery - Charge Forward: Surgery Billing (Robotic laparoscopic repair of 3.5 cm umbilical hernia with mesh)
[2023-03-25] MEDS: LACTATED RINGERS 1,000 ML 30 ML IV CONT ×2 (14:00)
[2023-03-25] MEDS: fentaNYL CITRATE INJ (*CRX) 100 MCG/2 ML VIAL 25 MCG IV PUSH ×8 (14:46→15:35)
[2023-03-25] MEDS: ONDANSETRON INJ 4 MG/2 ML VIAL IV PUSH (15:31)
== END 2023-03-25 17:15 | disposition home or self-care (01) ==
PROVIDERS: PCP Family Medicine; Visit Provider Surgery
PROC: (CPT 49594; principal; 2023-03-25 12:00)
DX: K42.0 Umbilical hernia with obstruction, without gangrene (principal); C61 Malignant neoplasm of prostate; C79.9 Secondary malignant neoplasm of unspecified site; Z87.891 Personal history of nicotine dependence; D64.9 Anemia, unspecified
CPT/HCPCS: 49594; A9270; C1781; J0690; J1100; J1170; J1885; J2371; J2405; J2704; J3010; J7030; J7120

== ENCOUNTER 2023-04-15 08:32 | Outpatient (CLI) | payer MEDICARE, BC, MEDICAID, SELFPAY ==
--- NOTE | ~2023-04-15 | CT_ITS ---
EXAMINATION: CT chest abdomen pelvis w con DATE: 04/15/2023 09:01 INDICATION: Prostate cancer. TECHNIQUE: Computed tomography (CT) of the chest and abdomen was performed with 100 mL Omnipaque 350 intravenous contrast. Pelvis The dose-length product was 995.63 mGy-cm. COMPARISON: CT abdomen and pelvis 08/13/2022 FINDINGS: CHEST CT: The lungs demonstrate mild atelectasis. No pleural effusion. The heart size is normal. There are arun nary artery calcifications. No pericardial effusion. There is a right internal jugular port with tip at superior cavoatrial junction. There are widespread sclerotic lesions of bone, consistent with meta static disease. ABDOMEN CT: The liver, gallbladder, spleen, pancreas, adrenal glands, and kidneys are normal. There is a left ing uinal hernia containing fat. There is prominent fat in the right inguinal canal. There may be changes of right inguinal hernia repair. There is diverticulosis of the colon without evidence of diverticul itis. The appendix is normal. There are no dilated loops of bowel. There is a small sliding hiatal he rnia. There are no pathologically enlarged lymph nodes. There is trace ascites. There is calcified at herosclerosis of the aorta and many of the other arteries. There are widespread sclerotic lesions of bone, consistent with metastatic disease. There is a chronic compression fracture of L4. IMPRESSION: 1. Widespread sclerotic lesions of bone, stable from 08/13/2022, consistent with metastatic disease. Reviewed, dictated and finalized at location E.
[2023-04-15 08:56] LABS: Estimated Glomerular Filt Rate > 60
== END 2023-04-15 08:33 | disposition home or self-care (01) ==
PROVIDERS: PCP Family Medicine; Visit Provider Internal Medicine Medical Oncology
DX: C61 Malignant neoplasm of prostate (principal); C79.51 Secondary malignant neoplasm of bone
CPT/HCPCS: 71260; 74177; Q9967